=== PATIENT | male | born 1960 | race Caucasian/White ===

== ENCOUNTER 2017-05-26 19:47 | Inpatient (IN) | payer SELFPAY ==
[2017-05-26 21:23] LABS: Amphetamine Detected (NotDetected); Barbiturates Screen Not Detected (NotDetected); Benzodiazepine Screen Detected (NotDetected); Cocaine Metabolite Screen Detected (NotDetected); Medtox Control Line Valid? VALID (VALID); Medtox Reader # READER 4; Methadone Not Detected (NotDetected); Methamphetamine Detected (NotDetected); Opiate Screen Not Detected (NotDetected); Oxycodone Screen Not Detected (NotDetected); Phencyclidine (PCP) Not Detected (NotDetected); THC/Cannabinoid Screen Not Detected (NotDetected); Tricyclic Screen Not Detected (NotDetected)
[2017-05-26] MEDS ORDERED: Clindamycin/D5W 600 mg/50 ml Premix Bag ONE (21:23)
[2017-05-26 21:30] LABS: Acetaminophen Less than 6.0 mcg/mL (10.0-30.0); Alcohol Less than 10 mg/dL (Less than 10); Salicylate Less than 8.0 mg/dL (15.0-30.0)
[2017-05-26 21:31] LABS: ALT (SGPT) 40 U/L (8-55); AST (SGOT) 102 U/L (5-34); Albumin 4.2 g/dL (3.5-5.0); Alkaline Phosphatase 104 U/L (40-150); Anion Gap 21 mmol/L (10-20); BUN (Urea Nitrogen) 18 mg/dL (8.4-25.7); Bilirubin, Total 1.1 mg/dL (0.2-1.2); Calc. Creatinine Clearance 0 mL/min (70-130); Carbon Dioxide 22 mmol/L (22-29); Chloride 97 mmol/L (98-107); Estimated GFR-MDRD 44; Globulin 4.5 g/dL (2.4-3.5); Glucose 82 mg/dL (70-105); Potassium 3.7 mmol/L (3.5-5.1); Protein, Total 8.7 g/dL (6.0-8.3); Sodium 136 mmol/L (136-145)
[2017-05-26 21:36] LABS: Band 4 % (5-11); Hemoglobin 14.1 g/dL (14.0-18.0); Lymphocytes 10 % (21-51); MDiff Complete? YES; Macrocytosis SLIGHT = 6-15 cells (100X) (0-5/hpf); Mean Corpuscular HGB CONC 34.4 g/dL (32.0-36.0); Mean Corpuscular Hemoglobin 33.6 pg (27.0-31.0); Mean Corpuscular Volume 97.7 fl (80.0-94.0); Mean Platelet Volume 7.5 fL (7.4-10.4); Metamyelocyte 1 % (0-0); Monocytes 5 % (0-10); Myelocyte 1 % (0-0); Neutrophil 77 % (42-75); PLT Morphology Comment Appears Increased; Platelet Count 464 thou/uL (130-400); RBC Distribution Width 13.6 % (11.5-14.5); Reactive Lymphocytes 2 % (0-10); White Blood Cell (WBC) Count 20.8 thou/uL (4.8-10.8)
[2017-05-26 21:44] LABS: CK (CPK) 5351 U/L (30-200)
--- NOTE | 2017-05-26 21:45 | RAD ---
LEFT FINGER THREE VIEWS 05/26/17 HISTORY: Trauma. Left finger pain. FINDINGS/IMPRESSION: There is comminution of the base and shaft of the middle phalanx of the left index finger with displa cement of fracture fragments. POS: [facility]
[2017-05-27] MEDS ORDERED: Ondansetron ODT 4 MG TAB SL PRN (00:06)
[2017-05-27] MEDS ORDERED: Acetaminophen 325 MG TAB PO PRN (00:06)
[2017-05-27] MEDS ORDERED: Ondansetron HCl/PF 4 MG/2 ML Vial IVP PRN ×2 (00:06→20:18)
[2017-05-27 00:31] VITALS: BMI 28.2
[2017-05-27] MEDS: traMADol HCl 50 MG TAB PO PRN (01:40)
[2017-05-27] MEDS: Dextrose 5 % And 0.9 % NaCl 1,000 ML IV SCH ×2 (01:41→08:15)
[2017-05-27] MEDS: Clindamycin/D5W 600 MG in Premix Bag 1 BAG IVPB SCH ×2 (01:44→08:21)
[2017-05-27 03:01] LABS: Lactic Acid 1.3 mmol/L (0.5-2.2)
[2017-05-27] MEDS ORDERED: FLU VACC QS2017-18 36 mo. & older 0.5 ML SYRINGE IM ONE (09:00)
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
[2017-05-27] MEDS ORDERED: Propofol 200 MG/20 ML VIAL ONE (14:03)
[2017-05-27] MEDS ORDERED: Lidocaine 1% PF 5 ML VIAL ONE (14:03)
[2017-05-27] MEDS ORDERED: Ondansetron HCl/PF 4 MG/2 ML Vial ONE (14:03)
[2017-05-27] MEDS ORDERED: diphenhydrAMINE 50 MG/ML VIAL ONE (14:03)
[2017-05-27] MEDS ORDERED: PHENYLEPHRINE-NS 100 MCG/ML 10 ML SYRINGE ONE (14:03)
[2017-05-27] MEDS: Lorazepam 2 MG/ML VIAL SLOW IVP PRN (14:22)
[2017-05-27] MEDS ORDERED: Sodium Chloride 0.9% 30 ML ONE (18:17)
[2017-05-27] MEDS ORDERED: Bupivacaine PF 0.5% 30 ML VIAL ONE (18:18)
[2017-05-27] MEDS ORDERED: Bacitracin Zinc Ointment 30 gm TUBE ONE (18:18)
[2017-05-27] MEDS ORDERED: Tobramycin Sulfate 1.2 GM VIAL ONE (18:18)
[2017-05-27] MEDS ORDERED: Fentanyl 100 MCG/2 ML VIAL ONE (18:52)
[2017-05-27] MEDS ORDERED: Promethazine HCl 25 MG/ML VIAL IM PRN (20:18)
[2017-05-27] MEDS ORDERED: Promethazine HCl 25 MG/ML VIAL SLOW IVP PRN (20:18)
[2017-05-27] MEDS ORDERED: Morphine 5 mg/5 ml in 0.9% NaCl/PF SYRINGE IV PRN (21:26)
[2017-05-27] MEDS: Vancomycin HCl 1.25 GM in Sodium Chloride 0.9% 250 ML 250 ML IVPB SCH (22:58)
[2017-05-28 04:08] LABS: #Eosinphils 0.2 thou/uL (0.0-0.7); #Lymphocytes 3.6 thou/uL (1.20-3.40); #Monocytes 1.6 thou/uL (0.11-0.59); #Neutrophils 7.2 thou/uL (1.40-6.50); %Basophils 0.2 % (0.0-1.0); %Eosinophils 1.4 % (0.0-10.0); %Lymphocytes 28.5 % (21.0-51.0); %Monocytes 12.4 % (0.0-10.0); %Neutrophils 57.5 % (42.0-75.0); Hemoglobin 11.7 g/dL (14.0-18.0); Mean Corpuscular Hemoglobin 33.8 pg (27.0-31.0); Mean Corpuscular Volume 99.5 fl (80.0-94.0); Platelet Count 364 thou/uL (130-400); RBC Distribution Width 13.6 % (11.5-14.5); Red Blood Cell (RBC) Count 3.47 mill/uL (4.70-6.10); White Blood Cell (WBC) Count 12.6 thou/uL (4.8-10.8)
[2017-05-28 05:35] LABS: Anion Gap 12 mmol/L (10-20); BUN (Urea Nitrogen) 9 mg/dL (8.4-25.7); CK (CPK) 2511 U/L (30-200); Calc. Creatinine Clearance 147 mL/min (70-130); Calcium 8.5 mg/dL (7.8-10.44); Carbon Dioxide 25 mmol/L (22-29); Chloride 110 mmol/L (98-107); Estimated GFR-MDRD Greater than 90; Glucose 90 mg/dL (70-105); Potassium 3.3 mmol/L (3.5-5.1); Sodium 144 mmol/L (136-145)
--- NOTE | 2017-05-28 09:29 | PDOC.PN ---
- Subjective Encounter Start Date: 05/28/17 Encounter Start Time: 09:10 Subjective: Expresses no specific complaint. - Objective MAR Reviewed: Yes Vital Signs & Weight: Vital Signs (12 hours) Temp Pulse Resp BP Pulse Ox 05/28/17 07:31 98.7 F 83 16 151/89 H 93 L 05/28/17 04:00 98.9 F 85 20 107/78 92 L 05/28/17 00:00 98.7 F 88 20 123/78 97 Weight Weight 219 lb 12.814 oz Result Diagrams: 05/28/17 03:35 05/28/17 03:35 Radiology Reviewed by me: Yes Phys Exam - Physical Examination Constitutional: NAD HEENT: sclera anicteric Neck: no JVD Respiratory: no rales Cardiovascular: RRR Gastrointestinal: soft Musculoskeletal: no edema (infected left index) Neurological: moves all 4 limbs Psychiatric: A&O x 3 Dx/Plan (1) Cirrhosis Code(s): K74.60 - UNSPECIFIED CIRRHOSIS OF LIVER Status: Acute Qualifiers: Ascites presence: without ascites Comment: Secondary to hepatitis c. Compensated. (2) Infected finger Code(s): L08.9 - LOCAL INFECTION OF THE SKIN AND SUBCUTANEOUS TISSUE, UNSP Status: Acute Plan: continue antibiotics. Comment: seen by hand surgery. (3) Altered mental status Code(s): R41.82 - ALTERED MENTAL STATUS, UNSPECIFIED Status: Resolved (4) HTN (hypertension) Code(s): I10 - ESSENTIAL (PRIMARY) HYPERTENSION Status: Chronic Plan: stable. (5) Drug overdose Code(s): T50.901A - POISONING BY UNSP DRUG/MEDS/BIOL SUBST, ACCIDENTAL, INIT Status: Resolved - Plan -: continue current therapy. -: [facility] to see. * .
[2017-05-28] MEDS ORDERED: Potassium Chloride 20 MEQ/100 ML PREMIX BAG IVPB SCH (09:30)
[2017-05-28] MEDS ORDERED: Potassium Chloride 20 MEQ in Sodium Chloride 0.9% 250 ML 250 ML IVPB SCH (10:15)
[2017-05-28] MEDS: Vancomycin HCl 1.25 GM in Sodium Chloride 0.9% 250 ML 250 ML IVPB SCH ×2 (10:23→21:58)
--- NOTE | 2017-05-28 11:40 | OP ---
DATE OF PROCEDURE: 05/27/2017 PREOPERATIVE DIAGNOSES: 1. Left index finger, middle phalanx osteomyelitis of middle phalanx, remnant of the distal phalange al joint, and the base of distal phalanx. 2. Bone abscess and soft tissue abscess, all 3 sites. PROCEDURES PERFORMED: 1. Excision of bone cortex, middle and distal phalanx, left index finger. 2. Wound debridement, left index finger. 3. Application of antibiotic beads, intramedullary and into the wound cavities. Defect created by t he osteomyelitis and subsequent debridements. 4. Tenotomy, extensor tendon. 5. Tenotomy, flexor tendon. FINDINGS: At the end of procedure, the patient had no viable middle phalanx bone left. The extensor tendon and most of the flexor tendon in this region were also involved in the process, desiccated an d/or necrotic from infection. DESCRIPTION OF PROCEDURE: After successful general LMA technique by [employer]. Time-out was done appropriately. Limb was prepped and draped. Mr. Alberto Ventura, cardiology physician assistant, prepared the back table by beginning to make the antibiotic beads which were [place] cement impregnated with vancomycin powder. There was a large abscess, open wound that drained grossly with palpation of yell ow thick green pus. After the limb was exsanguinated, tourniquet was inflated to 250 mmHg pressure. We began to extend the opening, which was an oval-shaped opening, almost 2.5 cm with gross green pus inside. We extended that 4 cm proximal and 15 mm distal to the level of the mid portion of the dist al phalanx and the neck of the proximal phalanx. Here, it was grossly infected bone, soft tissue, ex tensor tendon, flexor tendon. So, incision of the bone cortex, debridement of wound, tenotomies of t he infected tendons, all ensued initially. We then removed the underlying soft tissue that looked ge latinous and grossly infected, and this led to removal of some bone from the distal phalanx as well. Now, the entire middle phalanx had been resected along with surrounding infection of the flexor and extensor tendon compartments. We then irrigated this wound with 3 liters of normal saline and Pulsav ac pressure with antibiotics inside, deflated the tourniquet, and obtained hemostasis. We then place d the premixed small antibiotic beads into the canal as well as the wound itself. PLAN: The patient will have second debridement in 48-72 hours.
[2017-05-28] MEDS: Promethazine HCl 25 MG/ML VIAL IM PRN (12:22)
[2017-05-28] MEDS: HYDROcodone/Acetaminophen 7.5/325 mg Tablet PO PRN (16:58)
[2017-05-28] MEDS: Lorazepam 2 MG/ML VIAL SLOW IVP PRN (21:54)
[2017-05-28] MEDS: traMADol HCl 50 MG TAB PO PRN (21:57)
[2017-05-29 04:28] LABS: Anion Gap 8 mmol/L (10-20); BUN (Urea Nitrogen) 6 mg/dL (8.4-25.7); Calc. Creatinine Clearance 151 mL/min (70-130); Calcium 8.4 mg/dL (7.8-10.44); Carbon Dioxide 30 mmol/L (22-29); Chloride 106 mmol/L (98-107); Estimated GFR-MDRD Greater than 90; Glucose 100 mg/dL (70-105); Potassium 3.4 mmol/L (3.5-5.1); Sodium 141 mmol/L (136-145)
--- NOTE | 2017-05-29 07:46 | PDOC.PN ---
- Subjective Encounter Start Date: 05/29/17 Encounter Start Time: 07:35 No complaint.. - Objective Vital Signs & Weight: Vital Signs (12 hours) Temp Pulse Resp BP Pulse Ox 05/29/17 04:00 99.1 F 73 18 97 05/28/17 20:00 98.8 F 84 16 151/81 H 94 L Weight Weight 219 lb 12.814 oz Result Diagrams: 05/28/17 03:35 05/29/17 03:23 Phys Exam - Physical Examination Constitutional: NAD HEENT: sclera anicteric Neck: no JVD Respiratory: clear to auscultation bilateral Cardiovascular: RRR Gastrointestinal: soft Musculoskeletal: no edema (Left index infection..) Neurological: moves all 4 limbs Psychiatric: A&O x 3 Dx/Plan (1) Cirrhosis Code(s): K74.60 - UNSPECIFIED CIRRHOSIS OF LIVER Status: Acute Qualifiers: Ascites presence: without ascites Comment: Secondary to hepatitis c. Compensated. (2) Infected finger Code(s): L08.9 - LOCAL INFECTION OF THE SKIN AND SUBCUTANEOUS TISSUE, UNSP Status: Acute Comment: seen by hand surgery. Wound culture is growing Staph aureus..; on Vancomycin. (3) Altered mental status Code(s): R41.82 - ALTERED MENTAL STATUS, UNSPECIFIED Status: Resolved (4) HTN (hypertension) Code(s): I10 - ESSENTIAL (PRIMARY) HYPERTENSION Status: Chronic Comment: stable (5) Drug overdose Code(s): T50.901A - POISONING BY UNSP DRUG/MEDS/BIOL SUBST, ACCIDENTAL, INIT Status: Resolved - Plan -: Continue current therapy. -: P: as per hand surgery. -: f/u with MR -: Hypokalemia, supplemented. * .
[2017-05-29] MEDS ORDERED: Potassium Chloride 20 MEQ TAB PO SCH (08:00)
[2017-05-29 09:13] LABS: Vancomycin, Trough 9.7 ug/mL
[2017-05-29] MEDS: Vancomycin HCl 1.25 GM in Sodium Chloride 0.9% 250 ML 250 ML IVPB SCH (10:08)
[2017-05-29] MEDS: Vancomycin HCl 1.5 GM in Sodium Chloride 0.9% 250 ML 300 ML IVPB SCH ×3 (10:09→23:07)
[2017-05-29] MEDS: HYDROcodone/Acetaminophen 7.5/325 mg Tablet PO PRN (13:48)
[2017-05-29] MEDS: traMADol HCl 50 MG TAB PO PRN (15:27)
[2017-05-29] MEDS: Promethazine HCl 25 MG/ML VIAL IM PRN (21:17)
[2017-05-30 04:17] LABS: #Basophils 0.1 thou/uL (0.0-0.2); #Eosinphils 0.3 thou/uL (0.0-0.7); #Lymphocytes 4.5 thou/uL (1.20-3.40); #Monocytes 1.1 thou/uL (0.11-0.59); #Neutrophils 3.8 thou/uL (1.40-6.50); %Basophils 0.9 % (0.0-1.0); %Lymphocytes 45.8 % (21.0-51.0); %Monocytes 11.7 % (0.0-10.0); %Neutrophils 38.6 % (42.0-75.0); Hemoglobin 11.4 g/dL (14.0-18.0); Mean Corpuscular HGB CONC 33.3 g/dL (32.0-36.0); Mean Corpuscular Hemoglobin 33.5 pg (27.0-31.0); Mean Platelet Volume 7.9 fL (7.4-10.4); Platelet Count 360 thou/uL (130-400); RBC Distribution Width 13.6 % (11.5-14.5); Red Blood Cell (RBC) Count 3.39 mill/uL (4.70-6.10); White Blood Cell (WBC) Count 9.8 thou/uL (4.8-10.8)
[2017-05-30] MEDS: HYDROcodone/Acetaminophen 7.5/325 mg Tablet PO PRN ×2 (07:19→20:47)
[2017-05-30] MEDS ORDERED: Heparin 10,000 UNITS/ 10 ML VIAL ONE (07:44)
[2017-05-30] MEDS ORDERED: Potassium Chloride 20 MEQ TAB PO SCH (08:00)
--- NOTE | 2017-05-30 08:26 | RAD ---
THREE VIEWS OF THORACIC SPINE: COMPARISON: None. HISTORY: T-spine with possible injury. FINDINGS: Three views of the thoracic spine show normal height and alignment of the vertebral bodies and interv ertebral disks without fracture or subluxation. There are moderate osteophytes throughout the thorac ic spine. The visualized posterior ribs are unremarkable. IMPRESSION: Moderate degenerative change of the thoracic spine without acute osseous abnormality. POS: [facility]
--- NOTE | 2017-05-30 08:29 | RAD ---
3 VIEWS LUMBOSACRAL SPINE: Date: 05/30/17 HISTORY: Low back pain with possible spinal injury. FINDINGS: Three views of the lumbosacral spine show normal height and alignment of the vertebral bodies and int erval discs without fracture or subluxation. There is Grade I anterolisthesis of L5 on S1, likely sec ondary to degenerative change. Moderate posterior facet arthrosis is seen in the lower lumbosacral sp ine. Moderate osteophytes are seen throughout the lumbar spine. An inferior vena cava filter is visua lized. IMPRESSION: Moderate degenerative changes of the lumbar spine without acute osseous abnormality. POS: [facility]
--- NOTE | 2017-05-30 08:29 | RAD ---
CERVICAL SPINE RADIOGRAPH SERIES 3 VIEWS: CLINICAL HISTORY: Spine injury. FINDINGS: The lateral aspect of C1 appropriately aligned. Imaged portions of the dens are intact. There is mo derate to severe multilevel degenerative change of the cervical spine with bridging osteophytosis. M ultilevel disk space narrowing and end plate irregularity present. No significant subluxation. Ther e are scattered radiopaque densities of the regional soft tissues, not fully characterized. IMPRESSION: Moderate to severe multilevel cervical spine degenerative change without acute fracture identified. POS: [facility]
[2017-05-30 08:30] LABS: Magnesium 1.9 mg/dL (1.6-2.6); Phosphorus 3.3 mg/dL (2.3-4.7)
[2017-05-30] MEDS: Cyanocobalamin (Vitamin B-12) 1,000 MCG TAB PO SCH (10:01)
[2017-05-30] MEDS: Vancomycin HCl 1.5 GM in Sodium Chloride 0.9% 250 ML 300 ML IVPB SCH (10:01)
[2017-05-30] MEDS: Multivitamin W/ Minerals 1 TAB PO SCH (10:01)
[2017-05-30] MEDS: Folic Acid 1 MG TAB PO SCH (10:01)
[2017-05-30] MEDS: Lorazepam 2 MG/ML VIAL SLOW IVP PRN (10:21)
--- NOTE | 2017-05-30 11:03 | PDOC.PN ---
- Subjective Encounter Start Date: 05/30/17 Encounter Start Time: 08:50 -: old records requested/rev Patient seen and examined. No new complaints. No overnight events - Objective MAR Reviewed: Yes Vital Signs & Weight: Vital Signs (12 hours) Temp Pulse Resp BP Pulse Ox 05/30/17 07:16 97.5 F L 68 16 149/77 H 95 05/30/17 04:00 98.7 F 62 15 152/85 H 95 05/30/17 00:39 99.0 F 76 18 155/74 H 96 Weight Weight 219 lb 12.814 oz I&O: 05/29/17 05/30/17 05/31/17 06:59 06:59 06:59 Intake Total 1490 Balance 1490 Result Diagrams: 05/30/17 03:48 05/29/17 03:23 Radiology Reviewed by me: Yes Phys Exam - Physical Examination Constitutional: NAD HEENT: PERRLA, moist MMs, sclera anicteric Neck: no JVD, supple Respiratory: no wheezing, no rales, no rhonchi Cardiovascular: RRR, no significant murmur, no rub Gastrointestinal: soft, non-tender, no distention, positive bowel sounds Musculoskeletal: no edema, pulses present left hand with dressing Neurological: non-focal, normal sensation Psychiatric: normal affect, A&O x 3 Skin: no rash, normal turgor Dx/Plan (1) Hypokalemia Code(s): E87.6 - HYPOKALEMIA Status: Acute (2) Osteomyelitis of finger of left hand Code(s): M86.9 - OSTEOMYELITIS, UNSPECIFIED Status: Acute (3) Rhabdomyolysis Code(s): M62.82 - RHABDOMYOLYSIS Status: Acute (4) Sepsis Code(s): A41.9 - SEPSIS, UNSPECIFIED ORGANISM Status: Acute (5) Toxic metabolic encephalopathy Code(s): G92 - TOXIC ENCEPHALOPATHY Status: Acute (6) Degenerative joint disease of spine Code(s): M47.9 - SPONDYLOSIS, UNSPECIFIED Status: Chronic (7) HTN (hypertension) Code(s): I10 - ESSENTIAL (PRIMARY) HYPERTENSION Status: Chronic Comment: stable (8) Macrocytic anemia Code(s): D53.9 - NUTRITIONAL ANEMIA, UNSPECIFIED Status: Chronic (9) Drug overdose Code(s): T50.901A - POISONING BY UNSP DRUG/MEDS/BIOL SUBST, ACCIDENTAL, INIT Status: Resolved - Plan cont current plan of care, continue antibiotics, social work program coordinator * consult ID * neurology consulted by hand surgeon * pain control * continue IV antibiotics * wound care * medication reviewed as below * symptomatic treatment. * will replace potassium * counselled to avoid polysubstance Review of Systems - Review of Systems Constitutional: negative: fever, chills, sweats, weakness, malaise, other ENT: negative: Ear Pain, Ear Discharge, Nose Pain, Nose Discharge, Nose Congestion, Mouth Pain, Mouth Swelling, Throat Pain, Throat Swelling, Other Respiratory: negative: Cough, Dry, Shortness of Breath, Hemoptysis, SOB with Excertion, Pleuritic Pain, Sputum, Wheezing Cardiovascular: negative: chest pain, palpitations, orthopnea, paroxysmal nocturnal dyspnea, edema, light headedness, other Gastrointestinal: negative: Nausea, Vomiting, Abdominal Pain, Diarrhea, Constipation, Melena, Hematochezia, Other Genitourinary: negative: Dysuria, Frequency, Incontinence, Hematuria, Retention , Other Musculoskeletal: Neck Pain, Back Pain, Hand Pain. negative: Shoulder Pain, Arm Pain, Leg Pain, Foot Pain, Other Skin: negative: Rash, Lesions, Osman, Bruising, Other - Medications/Allergies Allergies/Adverse Reactions: Allergies Allergy/AdvReac Type Severity Reaction Status Date / Time oxycodone [Oxycodone] Allergy Severe CONFUSION Verified 10/13/12 20:14 Medications: Current Medications Hydrocodone Bitart/Acetaminophen ([place] 7.5/325) 2 tab PO Q12H PRN PRN Reason: Mild Pain (1-3) Last Admin: 05/30/17 07:19 Dose: 2 tab Cyanocobalamin (Vitamin B-12) 1,000 mcg PO DAILY [facility] Last Admin: 05/30/17 10:01 Dose: 1,000 mcg Folic Acid (Folvite) 1 mg PO DAILY [facility] Last Admin: 05/30/17 10:01 Dose: 1 mg CEFTRIAXONE 2GM/50 ML BAG 2 gm (/ Device) 50 mls @ 100 mls/hr IVPB Q24HR [facility] Iron/Minerals/Multivitamins (Theragran M) 1 tab PO DAILY [facility] Last Admin: 05/30/17 10:01 Dose: 1 tab Lorazepam (Ativan) 0.5 mg SLOW IVP Q6H PRN PRN Reason: Anxiety Last Admin: 05/30/17 10:21 Dose: 0.5 mg Meperidine HCl (Demerol) 50 mg IM Q4H PRN PRN Reason: Severe Pain (7-10) Last Admin: 05/29/17 21:16 Dose: 50 mg Miscellaneous Medication (Pharmacy To Dose) 0 each IVPB PRN PRN PRN Reason: [facility] to Dose Morphine Sulfate/Sodium Chloride (Morphine 0.9% Nacl/Pf 5 Mg/5 M) 5 mg IV Q6H PRN PRN Reason: Moderate Pain (4-6) Promethazine HCl (Phenergan) 25 mg IM Q4H PRN PRN Reason: Nausea Last Admin: 05/29/17 21:17 Dose: 25 mg Sodium Chloride (Flush - Normal Saline) 10 ml IVF Q12HR [facility] Last Admin: 05/30/17 10:01 Dose: 10 ml Sodium Chloride (Flush - Normal Saline) 10 ml IVF PRN PRN PRN Reason: Saline Flush Thiamine HCl (Thiamine) 100 mg PO DAILY [facility] Last Admin: 05/30/17 10:01 Dose: 100 mg Tramadol HCl (Ultram) 50 mg PO Q6H PRN PRN Reason: Pain Last Admin: 05/29/17 15:27 Dose: 50 mg
[2017-05-30] MEDS: CEFTRIAXONE 2GM/50 ML BAG 2 GM in Premix Bag 1 BAG IVPB SCH (13:04)
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
--- NOTE | 2017-05-30 15:46 | SPC ---
SONOGRAPHIC GUIDED LEFT UPPER EXTREMITY PICC PLACEMENT. HISTORY: Finger infection. Osteomyelitis. FINDINGS: After explaining the procedure and answering all questions, the left upper extremity was prepped and draped in the usual sterile fashion. Sterile technique, buffered local anesthesia, sonographic modesto nce, and a 22-gauge needle were used to carefully access the left basilic vein. Standard technique w as then used to place the tip of a 5 German single-lumen PICC so that the tip lies at the level of th e superior vena cava. The catheter was flushed and secured externally. The patient tolerated the pr ocedure well and was returned in unchanged condition. IMPRESSION: Technically successful left upper extremity PICC placement. The catheter is now ready for use. POS: [facility]
[2017-05-30] MEDS: Promethazine HCl 25 MG/ML VIAL IM PRN (16:24)
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
--- NOTE | 2017-05-31 10:20 | PDOC.PN ---
- Subjective Encounter Start Date: 05/31/17 Encounter Start Time: 08:30 Patient seen and examined. No new complaints. No overnight events - Objective MAR Reviewed: Yes Vital Signs & Weight: Vital Signs (12 hours) Temp Pulse Resp BP Pulse Ox 05/31/17 08:30 98.6 F 72 16 170/84 H 98 05/31/17 07:15 98.6 F 72 16 05/31/17 04:00 98.0 F 65 18 150/88 H 96 05/31/17 00:10 98.6 F 75 18 158/66 H 99 Weight Weight 219 lb 12.814 oz I&O: 05/30/17 05/31/17 06/01/17 06:59 06:59 06:59 Intake Total 1490 1140 Balance 1490 1140 Result Diagrams: 05/30/17 03:48 05/29/17 03:23 Phys Exam - Physical Examination Constitutional: NAD HEENT: PERRLA, moist MMs, sclera anicteric Neck: no JVD, supple Respiratory: no wheezing, no rales, no rhonchi Cardiovascular: RRR, no significant murmur, no rub Gastrointestinal: soft, non-tender, no distention, positive bowel sounds Musculoskeletal: no edema, pulses present left hand with dressing, PICC line in place Neurological: non-focal, normal sensation, moves all 4 limbs Lymphatic: no nodes Psychiatric: normal affect, A&O x 3 Skin: no rash, normal turgor Dx/Plan (1) Hypokalemia Code(s): E87.6 - HYPOKALEMIA Status: Acute (2) Osteomyelitis of finger of left hand Code(s): M86.9 - OSTEOMYELITIS, UNSPECIFIED Status: Acute (3) Rhabdomyolysis Code(s): M62.82 - RHABDOMYOLYSIS Status: Acute (4) Sepsis Code(s): A41.9 - SEPSIS, UNSPECIFIED ORGANISM Status: Acute (5) Toxic metabolic encephalopathy Code(s): G92 - TOXIC ENCEPHALOPATHY Status: Resolved (6) Degenerative joint disease of spine Code(s): M47.9 - SPONDYLOSIS, UNSPECIFIED Status: Chronic (7) HTN (hypertension) Code(s): I10 - ESSENTIAL (PRIMARY) HYPERTENSION Status: Chronic Comment: stable (8) Macrocytic anemia Code(s): D53.9 - NUTRITIONAL ANEMIA, UNSPECIFIED Status: Chronic (9) Drug overdose Code(s): T50.901A - POISONING BY UNSP DRUG/MEDS/BIOL SUBST, ACCIDENTAL, INIT Status: Resolved - Plan cont current plan of care, continue antibiotics, social welfare clerk * continue IV rocephin * wound care * today plan for surgery * social work to arrange outpt IV antibiotics * medication reviewed as below * symptomatic treatment * pain controlled. Review of Systems - Review of Systems ENT: negative: Ear Pain, Ear Discharge, Nose Pain, Nose Discharge, Nose Congestion, Mouth Pain, Mouth Swelling, Throat Pain, Throat Swelling, Other Respiratory: negative: Cough, Dry, Shortness of Breath, Hemoptysis, SOB with Excertion, Pleuritic Pain, Sputum, Wheezing Cardiovascular: negative: chest pain, palpitations, orthopnea, paroxysmal nocturnal dyspnea, edema, light headedness, other Gastrointestinal: negative: Nausea, Vomiting, Abdominal Pain, Diarrhea, Constipation, Melena, Hematochezia, Other Genitourinary: negative: Dysuria, Frequency, Incontinence, Hematuria, Retention , Other Musculoskeletal: negative: Neck Pain, Shoulder Pain, Arm Pain, Back Pain, Hand Pain, Leg Pain, Foot Pain, Other Skin: negative: Rash, Lesions, Osman, Bruising, Other - Medications/Allergies Allergies/Adverse Reactions: Allergies Allergy/AdvReac Type Severity Reaction Status Date / Time oxycodone [Oxycodone] Allergy Severe CONFUSION Verified 10/13/12 20:14 Medications: Current Medications Hydrocodone Bitart/Acetaminophen ([place] 7.5/325) 2 tab PO Q12H PRN PRN Reason: Mild Pain (1-3) Last Admin: 05/30/17 20:47 Dose: 2 tab Cyanocobalamin (Vitamin B-12) 1,000 mcg PO DAILY [facility] Last Admin: 05/30/17 10:01 Dose: 1,000 mcg Folic Acid (Folvite) 1 mg PO DAILY [facility] Last Admin: 05/30/17 10:01 Dose: 1 mg CEFTRIAXONE 2GM/50 ML BAG 2 gm (/ Device) 50 mls @ 100 mls/hr IVPB Q24HR [facility] Last Admin: 05/30/17 13:04 Dose: 50 mls Iron/Minerals/Multivitamins (Theragran M) 1 tab PO DAILY [facility] Last Admin: 05/30/17 10:01 Dose: 1 tab Lorazepam (Ativan) 0.5 mg SLOW IVP Q6H PRN PRN Reason: Anxiety Last Admin: 05/30/17 10:21 Dose: 0.5 mg Meperidine HCl (Demerol) 50 mg IM Q4H PRN PRN Reason: Severe Pain (7-10) Last Admin: 05/30/17 16:19 Dose: 50 mg Morphine Sulfate/Sodium Chloride (Morphine 0.9% Nacl/Pf 5 Mg/5 M) 5 mg IV Q6H PRN PRN Reason: Moderate Pain (4-6) Promethazine HCl (Phenergan) 25 mg IM Q4H PRN PRN Reason: Nausea Last Admin: 05/30/17 16:24 Dose: 25 mg Sodium Chloride (Flush - Normal Saline) 10 ml IVF Q12HR [facility] Last Admin: 05/30/17 20:49 Dose: 10 ml Sodium Chloride (Flush - Normal Saline) 10 ml IVF PRN PRN PRN Reason: Saline Flush Thiamine HCl (Thiamine) 100 mg PO DAILY [facility] Last Admin: 05/30/17 10:01 Dose: 100 mg Tramadol HCl (Ultram) 50 mg PO Q6H PRN PRN Reason: Pain Last Admin: 05/29/17 15:27 Dose: 50 mg
[2017-05-31] MEDS ORDERED: ePHEDrine/0.9% NaCl/PF SYRINGE 50 mg/10 ml ONE (11:28)
[2017-05-31] MEDS ORDERED: Lidocaine 1% PF 5 ML VIAL ONE (11:28)
[2017-05-31] MEDS ORDERED: Dexamethasone 20 MG/5 ML VIAL ONE (11:28)
[2017-05-31] MEDS ORDERED: Ondansetron HCl/PF 4 MG/2 ML Vial ONE (11:28)
[2017-05-31] MEDS ORDERED: Propofol 200 MG/20 ML VIAL ONE (11:28)
[2017-05-31] MEDS ORDERED: Ondansetron HCl/PF 4 MG/2 ML Vial IVP PRN (12:57)
[2017-05-31] MEDS ORDERED: Fentanyl 100 MCG/2 ML VIAL ONE ×2 (14:14→16:21)
[2017-05-31] MEDS ORDERED: HYDROmorphone 0.5 MG/0.5 ML SYRINGE ONE (14:15)
[2017-05-31] MEDS ORDERED: Sodium Chloride 0.9% 10 ML ONE ×2 (14:20→15:14)
[2017-05-31] MEDS ORDERED: Bacitracin Zinc Ointment 30 gm TUBE ONE (14:20)
[2017-05-31] MEDS ORDERED: Bupivacaine PF 0.5% 30 ML VIAL ONE (14:20)
[2017-05-31] MEDS: CEFTRIAXONE 2GM/50 ML BAG 2 GM in Premix Bag 1 BAG IVPB SCH (14:42)
[2017-05-31] MEDS ORDERED: Tobramycin Sulfate 1.2 GM VIAL ONE (14:51)
[2017-05-31] MEDS ORDERED: Ketorolac Tromethamine 30 MG/ML VIAL ONE (16:32)
[2017-05-31] MEDS: Folic Acid 1 MG TAB PO SCH (18:04)
[2017-05-31] MEDS: Multivitamin W/ Minerals 1 TAB PO SCH (18:04)
[2017-05-31] MEDS: Cyanocobalamin (Vitamin B-12) 1,000 MCG TAB PO SCH (18:04)
[2017-05-31] MEDS: HYDROcodone/Acetaminophen 7.5/325 mg Tablet PO PRN (18:05)
[2017-05-31] MEDS: Morphine 4 MG/ML Carpuject SLOW IVP PRN (20:17)
--- NOTE | 2017-06-01 00:27 | OP ---
PREOPERATIVE DIAGNOSIS: Left index finger open wound with bone loss ( ). FINDINGS: 1. No gross infection. 2. Prosthetic 50% total bone loss at the middle phalanx, partial loss of joint surfaces secondary to infection, but no gross infection seen today and no erythema. PROCEDURE PERFORMED: 1. Debridement of wound, intermediate depth 50796. 2. Debridement of bone 02626. 3. Application of antibiotic beads dissolvable with tobramycin powder. 4. Closure of wound, 5 cm complex. DEBRIDEMENT TECHNIQUES FOLLOWS: 1. Use of [place] blade, curet, tenotomy scissors, and Adson's. 2. Excisional technique except for the bone that was excised only curetted. 3. Depth was down to including the bone and rim of the joint. 4. No gross infection. COMPLICATIONS: None. TOURNIQUET TIME: None. ESTIMATED BLOOD LOSS: 5 mL antibiotic beads again were dissolvable. INDICATIONS: The patient has had debridement, antibiotic bead placement, removal of antibiotic beads , dressing change daily, IV antibiotics for 5 days. We were concerned that he may have not enough jalen ne to maintain functional length, but at this point, the patient requested his finger could be salvag e even if not fully functional. He would prefer this as opposed to the possible nerve complications related to amputation. DESCRIPTION OF PROCEDURE: After appropriate prep and drape, we obtained a timeout, the wound was jah luated, we did a debridement using the techniques listed above for bone and joint irrigating with 3 l iters of normal saline, bulb syringe pressure while we waited for antibiotic beads to cure impregnate d with the tobramycin powder. Once this was done, we then turned our attention to the antibiotic faiza ds and placed them in the area of the bone defect deep in the wound and even with the dissolvable faiza ds, we could close the wound with 4-0 nylon. We then closed the wound with 4-0 nylon using a modifie d mattress techniques. Once this was done, had excellent circulation. The finger was not floppy. Karl gonzalez does have no skin turgor on the dorsum and he has the remnant of the flexor still left on the jones r aspect. For this reason, because he had no gross infection, and we could close the wound over anti biotic beads, we elected to let the finger remains to have a chance to heal and be used as a pinch po st with good sensation from chicken ranch tip arrangement. He left the operating room in a bulky dressing w ith no evidence of anesthetic or operative complication.
[2017-06-01] MEDS: Morphine 4 MG/ML Carpuject SLOW IVP PRN ×3 (07:24→22:53)
[2017-06-01] MEDS: Cyanocobalamin (Vitamin B-12) 1,000 MCG TAB PO SCH (08:07)
[2017-06-01] MEDS: Folic Acid 1 MG TAB PO SCH (08:07)
[2017-06-01] MEDS: Multivitamin W/ Minerals 1 TAB PO SCH (08:07)
[2017-06-01] MEDS: HYDROcodone/Acetaminophen 7.5/325 mg Tablet PO PRN (10:27)
[2017-06-01] MEDS: CEFTRIAXONE 2GM/50 ML BAG 2 GM in Premix Bag 1 BAG IVPB SCH (10:27)
--- NOTE | 2017-06-01 10:44 | PDOC.PN ---
- Subjective Encounter Start Date: 06/01/17 Encounter Start Time: 08:40 Patient seen and examined. No new complaints. No overnight events pt is resting this morning - Objective MAR Reviewed: Yes Vital Signs & Weight: Vital Signs (12 hours) Temp Pulse Resp BP Pulse Ox 06/01/17 08:00 98.4 F 76 16 06/01/17 07:14 98.4 F 76 16 133/70 96 06/01/17 04:00 98.7 F 75 18 141/77 H 96 05/31/17 23:52 98.6 F 73 16 135/78 94 L Weight Weight 219 lb 12.814 oz I&O: 05/31/17 06/01/17 06/02/17 06:59 06:59 06:59 Intake Total 1140 480 Balance 1140 480 Result Diagrams: 05/30/17 03:48 05/29/17 03:23 Phys Exam - Physical Examination Constitutional: NAD HEENT: PERRLA, moist MMs, sclera anicteric Neck: no JVD, supple Respiratory: no wheezing, no rales, no rhonchi Cardiovascular: RRR, no significant murmur, no rub Gastrointestinal: soft, non-tender, no distention, positive bowel sounds Musculoskeletal: no edema, pulses present left hand with dressing, PICC line Neurological: non-focal, normal sensation, moves all 4 limbs Lymphatic: no nodes Psychiatric: normal affect, A&O x 3 Skin: no rash, normal turgor Dx/Plan (1) Hypokalemia Code(s): E87.6 - HYPOKALEMIA Status: Acute (2) Osteomyelitis of finger of left hand Code(s): M86.9 - OSTEOMYELITIS, UNSPECIFIED Status: Acute (3) Rhabdomyolysis Code(s): M62.82 - RHABDOMYOLYSIS Status: Acute (4) Sepsis Code(s): A41.9 - SEPSIS, UNSPECIFIED ORGANISM Status: Acute (5) Toxic metabolic encephalopathy Code(s): G92 - TOXIC ENCEPHALOPATHY Status: Resolved (6) Degenerative joint disease of spine Code(s): M47.9 - SPONDYLOSIS, UNSPECIFIED Status: Chronic (7) HTN (hypertension) Code(s): I10 - ESSENTIAL (PRIMARY) HYPERTENSION Status: Chronic Comment: stable (8) Macrocytic anemia Code(s): D53.9 - NUTRITIONAL ANEMIA, UNSPECIFIED Status: Chronic (9) Drug overdose Code(s): T50.901A - POISONING BY UNSP DRUG/MEDS/BIOL SUBST, ACCIDENTAL, INIT Status: Resolved - Plan cont current plan of care, continue antibiotics, aids social worker * pt will need IV rocephin 2 gm daily till febary 6, then oral keflex 500 mg po tid and cleocin 450 mg po tid for 3 week * case work aide has to arrange iv antibiotics * once dr Troy clears, he would be stable for discharge * medication reviewed as below * symptomatic treatment * pain controlled * wound care. Review of Systems - Review of Systems Constitutional: negative: fever, chills, sweats, weakness, malaise, other Eyes: negative: Pain, Vision Change, Conjunctivae Inflammation, Eyelid Inflammation, Redness, Other ENT: negative: Ear Pain, Ear Discharge, Nose Pain, Nose Discharge, Nose Congestion, Mouth Pain, Mouth Swelling, Throat Pain, Throat Swelling, Other Respiratory: negative: Cough, Dry, Shortness of Breath, Hemoptysis, SOB with Excertion, Pleuritic Pain, Sputum, Wheezing Cardiovascular: negative: chest pain, palpitations, orthopnea, paroxysmal nocturnal dyspnea, edema, light headedness, other Gastrointestinal: negative: Nausea, Vomiting, Abdominal Pain, Diarrhea, Constipation, Melena, Hematochezia, Other Genitourinary: negative: Dysuria, Frequency, Incontinence, Hematuria, Retention , Other Musculoskeletal: Hand Pain. negative: Neck Pain, Shoulder Pain, Arm Pain, Back Pain, Leg Pain, Foot Pain, Other - Medications/Allergies Allergies/Adverse Reactions: Allergies Allergy/AdvReac Type Severity Reaction Status Date / Time oxycodone [Oxycodone] Allergy Severe CONFUSION Verified 10/13/12 20:14 Medications: Current Medications Hydrocodone Bitart/Acetaminophen ([place] 7.5/325) 2 tab PO Q12H PRN PRN Reason: Mild Pain (1-3) Last Admin: 06/01/17 10:27 Dose: 2 tab Cyanocobalamin (Vitamin B-12) 1,000 mcg PO DAILY [facility] Last Admin: 06/01/17 08:07 Dose: 1,000 mcg Folic Acid (Folvite) 1 mg PO DAILY [facility] Last Admin: 06/01/17 08:07 Dose: 1 mg CEFTRIAXONE 2GM/50 ML BAG 2 gm (/ Device) 50 mls @ 100 mls/hr IVPB Q24HR [facility] Last Admin: 06/01/17 10:27 Dose: 50 mls Iron/Minerals/Multivitamins (Theragran M) 1 tab PO DAILY [facility] Last Admin: 06/01/17 08:07 Dose: 1 tab Lorazepam (Ativan) 0.5 mg SLOW IVP Q6H PRN PRN Reason: Anxiety Last Admin: 05/30/17 10:21 Dose: 0.5 mg Meperidine HCl (Demerol) 50 mg IM Q4H PRN PRN Reason: Severe Pain (7-10) Last Admin: 05/30/17 16:19 Dose: 50 mg Morphine Sulfate (Morphine) 5 mg SLOW IVP Q6H PRN PRN Reason: Moderate Pain (4-6) Last Admin: 06/01/17 07:24 Dose: 5 mg Promethazine HCl (Phenergan) 25 mg IM Q4H PRN PRN Reason: Nausea Last Admin: 05/30/17 16:24 Dose: 25 mg Sodium Chloride (Flush - Normal Saline) 10 ml IVF Q12HR [facility] Last Admin: 06/01/17 10:28 Dose: 10 ml Sodium Chloride (Flush - Normal Saline) 10 ml IVF PRN PRN PRN Reason: Saline Flush Thiamine HCl (Thiamine) 100 mg PO DAILY [facility] Last Admin: 06/01/17 08:07 Dose: 100 mg Tramadol HCl (Ultram) 50 mg PO Q6H PRN PRN Reason: Pain Last Admin: 05/29/17 15:27 Dose: 50 mg
[2017-06-01] MEDS: Promethazine HCl 25 MG/ML VIAL IM PRN ×2 (16:06→20:02)
[2017-06-01] MEDS ORDERED: Lorazepam 2 MG/ML VIAL SLOW IVP PRN (20:41)
[2017-06-01 21:41] LABS: Anion Gap 12 mmol/L (10-20); BUN (Urea Nitrogen) 15 mg/dL (8.4-25.7); Calc. Creatinine Clearance 122 mL/min (70-130); Calcium 10.1 mg/dL (7.8-10.44); Carbon Dioxide 31 mmol/L (22-29); Chloride 105 mmol/L (98-107); Estimated GFR-MDRD 83; Glucose 81 mg/dL (70-105); Potassium 4.3 mmol/L (3.5-5.1); Sodium 144 mmol/L (136-145)
[2017-06-02] MEDS: Morphine 4 MG/ML Carpuject SLOW IVP PRN ×2 (07:47→16:06)
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
[2017-06-02] MEDS: Folic Acid 1 MG TAB PO SCH (07:57)
[2017-06-02] MEDS: Cyanocobalamin (Vitamin B-12) 1,000 MCG TAB PO SCH (07:57)
[2017-06-02] MEDS: Multivitamin W/ Minerals 1 TAB PO SCH (07:58)
--- NOTE | 2017-06-02 11:08 | PDOC.PN ---
- Subjective Encounter Start Date: 06/02/17 Encounter Start Time: 08:00 - Objective MAR Reviewed: Yes Vital Signs & Weight: Vital Signs (12 hours) Temp Pulse Resp BP Pulse Ox 06/02/17 08:00 98.0 F 67 16 174/80 H 98 06/02/17 04:11 97.5 F L 65 17 146/80 H 94 L 06/01/17 23:40 99.3 F 64 16 143/77 H 96 Weight Weight 219 lb 12.814 oz I&O: 06/01/17 06/02/17 06/03/17 06:59 06:59 06:59 Intake Total 480 1290 Balance 480 1290 Result Diagrams: 05/30/17 03:48 06/01/17 21:11 Phys Exam - Physical Examination Constitutional: NAD HEENT: PERRLA, moist MMs, sclera anicteric Neck: no JVD, supple Respiratory: no wheezing, no rales, no rhonchi Cardiovascular: RRR, no significant murmur, no rub Gastrointestinal: soft, non-tender, no distention, positive bowel sounds Musculoskeletal: no edema, pulses present right hand with dressing Neurological: non-focal, normal sensation Psychiatric: normal affect, A&O x 3 Skin: no rash, normal turgor Dx/Plan (1) Hypokalemia Code(s): E87.6 - HYPOKALEMIA Status: Acute (2) Osteomyelitis of finger of left hand Code(s): M86.9 - OSTEOMYELITIS, UNSPECIFIED Status: Acute (3) Rhabdomyolysis Code(s): M62.82 - RHABDOMYOLYSIS Status: Acute (4) Sepsis Code(s): A41.9 - SEPSIS, UNSPECIFIED ORGANISM Status: Acute (5) Toxic metabolic encephalopathy Code(s): G92 - TOXIC ENCEPHALOPATHY Status: Resolved (6) Degenerative joint disease of spine Code(s): M47.9 - SPONDYLOSIS, UNSPECIFIED Status: Chronic (7) HTN (hypertension) Code(s): I10 - ESSENTIAL (PRIMARY) HYPERTENSION Status: Chronic Comment: stable (8) Macrocytic anemia Code(s): D53.9 - NUTRITIONAL ANEMIA, UNSPECIFIED Status: Chronic (9) Drug overdose Code(s): T50.901A - POISONING BY UNSP DRUG/MEDS/BIOL SUBST, ACCIDENTAL, INIT Status: Resolved - Plan cont current plan of care, plan discussed w/ family, continue antibiotics, social services specialist * main issue at this point is his back and neck pain, today plan for MRI * neurosurgeon saw and no surgery indicated * social work for arranging outpt IV antibiotics * wound care * continue rocephin * medication reviewed as below * symptomatic treatment * discussed with family. Review of Systems - Review of Systems Constitutional: negative: fever, chills, sweats, weakness, malaise, other Eyes: negative: Pain, Vision Change, Conjunctivae Inflammation, Eyelid Inflammation, Redness, Other ENT: negative: Ear Pain, Ear Discharge, Nose Pain, Nose Discharge, Nose Congestion, Mouth Pain, Mouth Swelling, Throat Pain, Throat Swelling, Other Respiratory: negative: Cough, Dry, Shortness of Breath, Hemoptysis, SOB with Excertion, Pleuritic Pain, Sputum, Wheezing Cardiovascular: negative: chest pain, palpitations, orthopnea, paroxysmal nocturnal dyspnea, edema, light headedness, other Gastrointestinal: negative: Nausea, Vomiting, Abdominal Pain, Diarrhea, Constipation, Melena, Hematochezia, Other Genitourinary: negative: Dysuria, Frequency, Incontinence, Hematuria, Retention , Other Musculoskeletal: Neck Pain, Back Pain, Hand Pain Skin: negative: Rash, Lesions, Osman, Bruising, Other Neurological: negative: Weakness, Numbness, Incoordination, Change in Speech, Confusion, Seizures, Other - Medications/Allergies Allergies/Adverse Reactions: Allergies Allergy/AdvReac Type Severity Reaction Status Date / Time oxycodone [Oxycodone] Allergy Severe CONFUSION Verified 10/13/12 20:14 Medications: Current Medications Hydrocodone Bitart/Acetaminophen ([place] 7.5/325) 2 tab PO Q12H PRN PRN Reason: Mild Pain (1-3) Last Admin: 06/01/17 10:27 Dose: 2 tab Cyanocobalamin (Vitamin B-12) 1,000 mcg PO DAILY [facility] Last Admin: 06/02/17 07:57 Dose: 1,000 mcg Folic Acid (Folvite) 1 mg PO DAILY [facility] Last Admin: 06/02/17 07:57 Dose: 1 mg CEFTRIAXONE 2GM/50 ML BAG 2 gm (/ Device) 50 mls @ 100 mls/hr IVPB Q24HR [facility] Last Admin: 06/01/17 10:27 Dose: 50 mls Iron/Minerals/Multivitamins (Theragran M) 1 tab PO DAILY [facility] Last Admin: 06/02/17 07:58 Dose: 1 tab Lorazepam (Ativan) 0.5 mg SLOW IVP Q6H PRN PRN Reason: Anxiety Last Admin: 05/30/17 10:21 Dose: 0.5 mg Lorazepam (Ativan) 1 mg SLOW IVP Q15MIN PRN PRN Reason: .TWITCHES OR TICS Last Admin: 06/01/17 20:51 Dose: 1 mg Meperidine HCl (Demerol) 50 mg IM Q4H PRN PRN Reason: Severe Pain (7-10) Last Admin: 06/01/17 20:02 Dose: 50 mg Morphine Sulfate (Morphine) 5 mg SLOW IVP Q6H PRN PRN Reason: Moderate Pain (4-6) Last Admin: 06/02/17 07:47 Dose: 5 mg Promethazine HCl (Phenergan) 25 mg IM Q4H PRN PRN Reason: Nausea Last Admin: 06/01/17 20:02 Dose: 25 mg Sodium Chloride (Flush - Normal Saline) 10 ml IVF Q12HR [facility] Last Admin: 06/02/17 07:58 Dose: 10 ml Sodium Chloride (Flush - Normal Saline) 10 ml IVF PRN PRN PRN Reason: Saline Flush Last Admin: 06/01/17 15:08 Dose: 10 ml Thiamine HCl (Thiamine) 100 mg PO DAILY [facility] Last Admin: 06/02/17 07:57 Dose: 100 mg Tramadol HCl (Ultram) 50 mg PO Q6H PRN PRN Reason: Pain Last Admin: 05/29/17 15:27 Dose: 50 mg
[2017-06-02] MEDS ORDERED: Senokot 8.6 MG TAB PO PRN (11:09)
[2017-06-02] MEDS ORDERED: Bisacodyl 10 MG SUPP PR PRN (11:09)
[2017-06-02] MEDS ORDERED: Acetaminophen 325 MG TAB PO PRN (11:09)
[2017-06-02] MEDS ORDERED: Milk Of Magnesia 30 ML UDCUP PO PRN (11:09)
[2017-06-02] MEDS ORDERED: Ondansetron ODT 4 MG TAB PO PRN (11:09)
[2017-06-02] MEDS ORDERED: Eucerin (Mineral Oil/Petrolatum,White) 30 gm Jar TOP PRN (11:09)
[2017-06-02] MEDS ORDERED: Loratadine 10 MG TAB PO PRN (11:09)
[2017-06-02] MEDS ORDERED: Chloraseptic Spray 180 ml Bottle PO PRN (11:09)
[2017-06-02] MEDS ORDERED: Ondansetron HCl/PF 4 MG/2 ML Vial IVP PRN (11:09)
[2017-06-02] MEDS ORDERED: Zolpidem Tartrate 5 MG TAB PO PRN (11:09)
[2017-06-02] MEDS ORDERED: Mag-Al 1200 mg/1200 mg/30 ML UDCUP PO PRN (11:09)
[2017-06-02] MEDS ORDERED: Sodium Chloride 0.65% Nasal 44 ML BOT EA NARE PRN (11:09)
[2017-06-02] MEDS ORDERED: Artificial Tears 18 DROP/0.9 ML EA EYE PRN (11:09)
[2017-06-02] MEDS ORDERED: Diabetic Tussin 200 MG/10 ML UDCUP PO PRN (11:09)
[2017-06-02] MEDS ORDERED: hydrALAZINE 20 MG/ML VIAL SLOW IVP PRN (11:09)
[2017-06-02] MEDS ORDERED: ALPRAZolam 1 MG TAB PO PRN (11:10)
[2017-06-02] MEDS: CEFTRIAXONE 2GM/50 ML BAG 2 GM in Premix Bag 1 BAG IVPB SCH (11:35)
[2017-06-02] MEDS: HYDROcodone/Acetaminophen 7.5/325 mg Tablet PO PRN (11:36)
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
[2017-06-02] MEDS: Promethazine HCl 25 MG/ML VIAL IM PRN ×2 (13:00→19:16)
[2017-06-02] MEDS: Famotidine 20 MG TAB PO SCH (21:12)
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
[2017-06-03] MEDS: HYDROcodone/Acetaminophen 7.5/325 mg Tablet PO PRN (06:39)
[2017-06-03] MEDS: Famotidine 20 MG TAB PO SCH (08:42)
[2017-06-03] MEDS: Folic Acid 1 MG TAB PO SCH (08:42)
[2017-06-03] MEDS: Multivitamin W/ Minerals 1 TAB PO SCH (08:42)
[2017-06-03] MEDS: Cyanocobalamin (Vitamin B-12) 1,000 MCG TAB PO SCH (08:43)
--- NOTE | 2017-06-03 09:44 | PDOC.PN ---
- Subjective Encounter Start Date: 06/03/17 Encounter Start Time: 07:40 Patient seen and examined. No new complaints. No overnight events - Objective MAR Reviewed: Yes Vital Signs & Weight: Vital Signs (12 hours) Temp Pulse Resp BP Pulse Ox 06/03/17 07:44 98 F 64 16 158/83 H 96 06/03/17 04:07 98.6 F 64 18 144/86 H 96 06/03/17 00:37 97.7 F 70 19 161/86 H 97 Weight Weight 219 lb 12.814 oz I&O: 06/02/17 06/03/17 06/04/17 06:59 06:59 06:59 Intake Total 1290 Balance 1290 Result Diagrams: 05/30/17 03:48 06/01/17 21:11 Phys Exam - Physical Examination Constitutional: NAD HEENT: PERRLA, moist MMs, sclera anicteric Neck: no JVD, supple Respiratory: no wheezing, no rales, no rhonchi Cardiovascular: RRR, no significant murmur, no rub Gastrointestinal: soft, non-tender, no distention, positive bowel sounds Musculoskeletal: no edema, pulses present left hand with dressing Neurological: non-focal, normal sensation Lymphatic: no nodes Psychiatric: normal affect, A&O x 3 Skin: no rash, normal turgor Dx/Plan (1) Osteomyelitis of finger of left hand Code(s): M86.9 - OSTEOMYELITIS, UNSPECIFIED Status: Acute (2) Hypokalemia Code(s): E87.6 - HYPOKALEMIA Status: Acute (3) Rhabdomyolysis Code(s): M62.82 - RHABDOMYOLYSIS Status: Acute (4) Sepsis Code(s): A41.9 - SEPSIS, UNSPECIFIED ORGANISM Status: Acute (5) Toxic metabolic encephalopathy Code(s): G92 - TOXIC ENCEPHALOPATHY Status: Resolved (6) Degenerative joint disease of spine Code(s): M47.9 - SPONDYLOSIS, UNSPECIFIED Status: Chronic (7) HTN (hypertension) Code(s): I10 - ESSENTIAL (PRIMARY) HYPERTENSION Status: Chronic Comment: stable (8) Macrocytic anemia Code(s): D53.9 - NUTRITIONAL ANEMIA, UNSPECIFIED Status: Chronic (9) Drug overdose Code(s): T50.901A - POISONING BY UNSP DRUG/MEDS/BIOL SUBST, ACCIDENTAL, INIT Status: Resolved - Plan cont current plan of care, 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 * stable for discharge Review of Systems - Review of Systems ENT: negative: Ear Pain, Ear Discharge, Nose Pain, Nose Discharge, Nose Congestion, Mouth Pain, Mouth Swelling, Throat Pain, Throat Swelling, Other Respiratory: negative: Cough, Dry, Shortness of Breath, Hemoptysis, SOB with Excertion, Pleuritic Pain, Sputum, Wheezing Cardiovascular: negative: chest pain, palpitations, orthopnea, paroxysmal nocturnal dyspnea, edema, light headedness, other Gastrointestinal: negative: Nausea, Vomiting, Abdominal Pain, Diarrhea, Constipation, Melena, Hematochezia, Other Genitourinary: negative: Dysuria, Frequency, Incontinence, Hematuria, Retention , Other Musculoskeletal: negative: Neck Pain, Shoulder Pain, Arm Pain, Back Pain, Hand Pain, Leg Pain, Foot Pain, Other Skin: negative: Rash, Lesions, Osman, Bruising, Other - Medications/Allergies Allergies/Adverse Reactions: Allergies Allergy/AdvReac Type Severity Reaction Status Date / Time oxycodone [Oxycodone] Allergy Severe CONFUSION Verified 10/13/12 20:14 Medications: Current Medications Acetaminophen (Tylenol) 650 mg PO Q4H PRN PRN Reason: Headache/Fever or Mild Pain Hydrocodone Bitart/Acetaminophen ([place] 7.5/325) 2 tab PO Q12H PRN PRN Reason: Mild Pain (1-3) Last Admin: 06/03/17 06:39 Dose: 2 tab Al Hydroxide/Mg Hydroxide (Maalox) 15 ml PO Q4H PRN PRN Reason: Heartburn or Indigestion Alprazolam (Xanax) 1 mg PO Q12HR PRN PRN Reason: Anxiety Artificial Tears (Tears Naturale) 0 drop EA EYE PRN PRN PRN Reason: Dry Eyes Bisacodyl (Dulcolax) 10 mg [place] DAILYPRN PRN PRN Reason: Constipation Cyanocobalamin (Vitamin B-12) 1,000 mcg PO DAILY [facility] Last Admin: 06/03/17 08:43 Dose: 1,000 mcg Famotidine (Pepcid) 20 mg PO BID [facility] Last Admin: 06/03/17 08:42 Dose: 20 mg Folic Acid (Folvite) 1 mg PO DAILY [facility] Last Admin: 06/03/17 08:42 Dose: 1 mg Guaifenesin (Robitussin Sf) 200 mg PO Q4H PRN PRN Reason: Cough Hydralazine HCl (Apresoline) 10 mg SLOW IVP Q4H PRN PRN Reason: Systolic BP > 180 CEFTRIAXONE 2GM/50 ML BAG 2 gm (/ Device) 50 mls @ 100 mls/hr IVPB Q24HR [facility] Last Admin: 06/02/17 11:35 Dose: 50 mls Iron/Minerals/Multivitamins (Theragran M) 1 tab PO DAILY [facility] Last Admin: 06/03/17 08:42 Dose: 1 tab Loratadine (Claritin) 10 mg PO DAILYPRN PRN PRN Reason: Sinus Symptoms Lorazepam (Ativan) 0.5 mg SLOW IVP Q6H PRN PRN Reason: Anxiety Last Admin: 05/30/17 10:21 Dose: 0.5 mg Lorazepam (Ativan) 1 mg SLOW IVP Q15MIN PRN PRN Reason: .TWITCHES OR TICS Last Admin: 06/01/17 20:51 Dose: 1 mg Magnesium Hydroxide (Milk Of Magnesium) 30 ml PO DAILYPRN PRN PRN Reason: Constipation Meperidine HCl (Demerol) 50 mg IM Q4H PRN PRN Reason: Severe Pain (7-10) Last Admin: 06/02/17 19:16 Dose: 50 mg Mineral Oil/White Petrolatum (Eucerin Cream) 0 gm TOP BIDPRN PRN PRN Reason: Dry Skin Morphine Sulfate (Morphine) 5 mg SLOW IVP Q6H PRN PRN Reason: Moderate Pain (4-6) Last Admin: 06/02/17 16:06 Dose: 5 mg Ondansetron HCl (Zofran Odt) 4 mg PO Q6H PRN PRN Reason: Nausea/Vomiting Ondansetron HCl (Zofran) 4 mg IVP Q6H PRN PRN Reason: Nausea/Vomiting Phenol (Chloraseptic [place] 180 Ml Bot) 0 ml PO PRN PRN PRN Reason: Sore Throat Promethazine HCl (Phenergan) 25 mg IM Q4H PRN PRN Reason: Nausea Last Admin: 06/02/17 19:16 Dose: 25 mg Senna (Senokot) 2 tab PO HSPRN PRN PRN Reason: Constipation Sodium Chloride (Flush - Normal Saline) 10 ml IVF Q12HR [facility] Last Admin: 06/02/17 21:14 Dose: 10 ml Sodium Chloride (Flush - Normal Saline) 10 ml IVF PRN PRN PRN Reason: Saline Flush Last Admin: 06/01/17 15:08 Dose: 10 ml Sodium Chloride ([place] Nasal [place] 0.65%) 0 ml EA NARE QIDPRN PRN PRN Reason: Nasal Congestion Thiamine HCl (Thiamine) 100 mg PO DAILY [facility] Last Admin: 06/03/17 08:42 Dose: 100 mg Tramadol HCl (Ultram) 50 mg PO Q6H PRN PRN Reason: Pain Last Admin: 05/29/17 15:27 Dose: 50 mg Zolpidem Tartrate (Ambien) 5 mg PO HSPRN PRN PRN Reason: Insomnia
--- NOTE | 2017-06-03 09:58 | ADD-DIS ---
ADDENDUM Please see discharge summary dictated by Dr. Woodrow Bellamy for further details. There is no signif icant change in my discharge summary as well. Discharge diagnoses and further details have already m entioned in his discharge summary. Only important information I am giving on discharge summary is th at Dr. Beavers was consulted and he recommended IV antibiotic therapy. This patient will continue IV R ocephin 2 grams daily till 06/21/2016 and after that patient will continue Keflex 500 mg t.i.d. and C leocin 450 mg t.i.d. for another 3 weeks. During this period, patient will have weekly CBC, CMP, and CRP. The patient will follow up with Dr. Troy and Dr. Beavers as well as Neurosurgery. He was continued to complain of neck pain, back pain, and that is why he had radiological x-ray of th oracic, lumbar and cervical spine. He already had MRI as an outpatient basis and neurosurgeon recomm ended outpatient followup. This patient is seen and examined at bedside today. Please see my progress note from today for furth er details.
[2017-06-03] MEDS: CEFTRIAXONE 2GM/50 ML BAG 2 GM in Premix Bag 1 BAG IVPB SCH (10:48)
[2017-06-03 11:56] VITALS: BP 131/80; TEMP 98.2
== END 2017-06-03 16:17 | disposition home or self-care (01) | DRG 907 ==
LOC: ERS 19:47 → SURG B 05-27 00:01
PROVIDERS: ADMIT Internal Medicine; ATTEND Internal Medicine
PROC: 0PBV0ZZ Excision of Left Finger Phalanx, Open Approach (ICD-10-PCS; 2017-05-27)
PROC: 02HV33Z Insertion of Infusion Device into Superior Vena Cava, Percutaneous Approach (ICD-10-PCS; 2017-05-30)
PROC: B548ZZA Ultrasonography of Superior Vena Cava, Guidance (ICD-10-PCS; 2017-05-30)
PROC: 0PBV0ZZ Excision of Left Finger Phalanx, Open Approach (ICD-10-PCS; principal; 2017-05-31)
DX: T40.5X1A Poisoning by cocaine, accidental (unintentional), initial encounter (principal); A41.9 Sepsis, unspecified organism; G92 Toxic encephalopathy; M62.82 Rhabdomyolysis; M86.8X4 Other osteomyelitis, hand; F19.939 Other psychoactive substance use, unspecified with withdrawal, unspecified; L02.512 Cutaneous abscess of left hand; S62.601B Fracture of unspecified phalanx of left index finger, initial encounter for open fracture; K74.60 Unspecified cirrhosis of liver; D53.9 Nutritional anemia, unspecified; B19.20 Unspecified viral hepatitis C without hepatic coma; E87.6 Hypokalemia; I10 Essential (primary) hypertension; T43.621A Poisoning by amphetamines, accidental (unintentional), initial encounter; T42.4X1A Poisoning by benzodiazepines, accidental (unintentional), initial encounter; Z87.820 Personal history of traumatic brain injury; F17.210 Nicotine dependence, cigarettes, uncomplicated; F14.10 Cocaine abuse, uncomplicated; F15.10 Other stimulant abuse, uncomplicated; F41.9 Anxiety disorder, unspecified; F32.9 Major depressive disorder, single episode, unspecified; B95.61 Methicillin susceptible Staphylococcus aureus infection as the cause of diseases classified elsewhere; M50.30 Other cervical disc degeneration, unspecified cervical region; M51.37 Other intervertebral disc degeneration, lumbosacral region; M48.07 Spinal stenosis, lumbosacral region; W34.00XA Accidental discharge from unspecified firearms or gun, initial encounter; Y92.019 Unspecified place in single-family (private) house as the place of occurrence of the external cause
CPT/HCPCS: 36415; 36569; 72040; 72072; 72100; 80048; 80053; 80202; 80306; 80307; 82140; 82550; 83605; 83735; 84100; 85025; 86140; 87040; 87070; 87077; 87186; 87205; 90471; 90682; 96361; 96365; A4216; C1713; C1751; G0008; J0131; J0696; J1100; J1170; J1200; J1644; J1885; J2001; J2060; J2175; J2270; J2405; J2550; J2704; J3010; J3260; J3370; J3480; J3490; J7042; J7050; Q2036; S0020

== ENCOUNTER 2017-08-23 00:47 | Emergency (ER) | payer SELFPAY | END 2017-08-23 02:25 | LOC: ERS 00:47 | DX: Z02.89 Encounter for other administrative examinations (principal) | CPT/HCPCS: 99283 ==

== ENCOUNTER 2018-08-31 16:42 | Emergency (ER) | payer SELFPAY, BC ==
[2018-08-31] MEDS ORDERED: Ketorolac Tromethamine 60 MG/2 ML VIAL ONE (17:53)
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
== END 2018-08-31 19:03 | disposition home or self-care (01) ==
LOC: ERS 16:42
DX: S00.03XA Contusion of scalp, initial encounter (principal); M54.5 Low back pain; M54.2 Cervicalgia; G89.29 Other chronic pain; I10 Essential (primary) hypertension; F41.9 Anxiety disorder, unspecified; F17.210 Nicotine dependence, cigarettes, uncomplicated; V89.2XXA Person injured in unspecified motor-vehicle accident, traffic, initial encounter
CPT/HCPCS: 70450; 72125; 72131; 96372; J1885

== ENCOUNTER 2018-10-10 08:54 | Outpatient (CLI) | payer BC ==
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
== END 2018-10-10 08:55 | disposition home or self-care (01) ==
LOC: TBSIIMAG 08:54
PROVIDERS: ATTEND Neurological Surgery
DX: M47.22 Other spondylosis with radiculopathy, cervical region (principal); M47.816 Spondylosis without myelopathy or radiculopathy, lumbar region; M43.17 Spondylolisthesis, lumbosacral region; M48.061 Spinal stenosis, lumbar region without neurogenic claudication; M48.07 Spinal stenosis, lumbosacral region; M48.02 Spinal stenosis, cervical region; M50.11 Cervical disc disorder with radiculopathy, high cervical region; Z98.890 Other specified postprocedural states
CPT/HCPCS: 72141; 72148

== ENCOUNTER 2019-01-22 08:21 | Observation (INO) | payer BC ==
[2019-01-19 16:36] VITALS: BMI 30.3
[2019-01-22 09:18] LABS: Hemoglobin 14.5 g/dL (14.0-18.0); Mean Corpuscular HGB CONC 34.2 g/dL (32.0-36.0); Mean Corpuscular Hemoglobin 33.7 pg (27.0-31.0); Mean Corpuscular Volume 98.5 fL (78.0-98.0); Mean Platelet Volume 9.1 fL (7.4-10.4); Platelet Count 259 thou/uL (130-400); RBC Distribution Width 14.5 % (11.5-14.5); Red Blood Cell (RBC) Count 4.31 mill/uL (4.70-6.10); White Blood Cell (WBC) Count 12.8 thou/uL (4.8-10.8)
[2019-01-22 09:28] LABS: Anion Gap 12 mmol/L (10-20); BUN (Urea Nitrogen) 11 mg/dL (8.4-25.7); Calc. Creatinine Clearance 117 mL/min (70-130); Calcium 9.2 mg/dL (7.8-10.44); Carbon Dioxide 26 mmol/L (22-29); Chloride 106 mmol/L (98-107); Estimated GFR-MDRD 76; Glucose 69 mg/dL (70-105); Potassium 4.1 mmol/L (3.5-5.1); Sodium 140 mmol/L (136-145)
[2019-01-22 09:30] LABS: Band 6 % (5-11); Eosinophils 2 % (0-10); Lymphocytes 41 % (21-51); MDiff Complete? YES; Monocytes 15 % (0-10); Neutrophil 32 % (42-75); RBC Morphology Normal; Reactive Lymphocytes 4 % (0-10)
[2019-01-22] MEDS ORDERED: Fentanyl 100 MCG/2 ML VIAL ONE ×4 (10:15→14:26)
[2019-01-22] MEDS ORDERED: Sodium Chloride 0.9% 10 ML ONE (11:05)
[2019-01-22] MEDS ORDERED: Midazolam HCl 2 mg/2 ml Vial ONE (11:48)
[2019-01-22] MEDS ORDERED: SUGAMMADEX SODIUM 500 MG/5 ML VIAL ONE (12:56)
[2019-01-22] MEDS ORDERED: Rocuronium Bromide 10 MG/ML (10ML VIAL) ONE (14:43)
[2019-01-22] MEDS ORDERED: Dexamethasone 20 MG/5 ML VIAL ONE (14:43)
[2019-01-22] MEDS ORDERED: Ondansetron PF 4 MG/2 ML Vial ONE (14:43)
[2019-01-22] MEDS ORDERED: PROPOFOL 200 MG/20 ML VIAL ONE (14:43)
[2019-01-22] MEDS ORDERED: PHENYLEPHRINE-NS 100 MCG/ML 10 ML SYRINGE ONE (14:43)
[2019-01-22] MEDS ORDERED: Glycopyrrolate 0.2 MG/ML 5 ML SYRINGE ONE (14:43)
[2019-01-22] MEDS ORDERED: Lidocaine 1% PF 5 ML VIAL ONE (14:43)
[2019-01-22] MEDS ORDERED: ePHEDrine 50 MG/ML VIAL ONE (14:43)
--- NOTE | 2019-01-22 15:20 | EKG ---
Test Reason : PREOP Blood Pressure : / mmHG Vent. Rate : 070 BPM Atrial Rate : 070 BPM P-R Int : 180 ms QRS Dur : 084 ms QT Int : 396 ms P-R-T Axes : 078 075 022 degrees QTc Int : 427 ms Normal sinus rhythm Septal infarct , age undetermined Abnormal ECG When compared with ECG of 28-SEP-2012 13:14, Septal infarct is now Present Nonspecific T wave abnormality now evident in Inferior leads Confirmed by DR. Braulio MILES ([id number]) on 01/22/2019 3:20:24 PM Referred By: YOSEF Confirmed By:DR. Braulio MILES
--- NOTE | 2019-01-22 15:42 | OP ---
DATE OF PROCEDURE: 01/22/2019 TOP LIFT NAILER: Gavin Spear PA-C PROCEDURES PERFORMED: Anterior cervical diskectomy and osteophytectomy C4 through C7 and interbody arthrodesis anterior titanium fixation C4 through C7. DESCRIPTION OF PROCEDURE: The patient was brought to the operating room and intubated. He was positioned supine with the head in modest extension on a gel-filled donut. An incision was made exposing the anterior cervical spinal, and the level was confirmed by x-ray. As expected, the patient had dramatic osteophytic disease from C4 through C7. I debrided the osteophytic disease with extensive efforts using handheld rongeurs. After finding out the osteophytic disease, we explored the disk spaces, and could not find meaningful remaining disk spaces at any of the visualized levels. Whatever remaining disk was identified, was removed and debrided for the purpose arthrodesis. There was certainly no space to place intervertebral devices. After completely decompressed the osteophytic disease, an anterior plate was then brought in the field and secured to C4, C5, C6, and C7 using two 14-mm screws at each level. The wound was then extensively irrigated and MAC hemostasis was secured. The wound was closed in anatomic layers over drain. Job ID: [id number]
[2019-01-22] MEDS ORDERED: Promethazine 25 MG TAB PO PRN (16:23)
[2019-01-22] MEDS ORDERED: traMADol HCl 50 MG TAB PO PRN ×2 (16:23)
[2019-01-22] MEDS ORDERED: tiZANidine HCl 4 MG TAB PO PRN (16:23)
[2019-01-22] MEDS ORDERED: Milk Of Magnesia 30 ML UDCUP PO PRN (16:23)
[2019-01-22] MEDS ORDERED: Ondansetron PF 4 MG/2 ML Vial IVP PRN (16:23)
[2019-01-22] MEDS ORDERED: diphenhydrAMINE 25 MG CAP PO PRN (16:23)
[2019-01-22] MEDS ORDERED: diphenhydrAMINE 50 MG/ML VIAL IVP PRN (16:23)
[2019-01-22] MEDS ORDERED: Promethazine HCl 25 MG/ML VIAL IM PRN (16:23)
[2019-01-22] MEDS ORDERED: HYDROcodone/Acetaminophen 10/325 mg Tablet PO PRN (16:23)
[2019-01-22] MEDS ORDERED: Mag-Al 1200 mg/1200 mg/30 ML UDCUP PO PRN (16:23)
[2019-01-22] MEDS ORDERED: Promethazine HCl 12.5 MG SUPP PR PRN (16:23)
[2019-01-22] MEDS: Morphine 2 MG/ML SYRINGE SLOW IVP PRN (16:51)
[2019-01-22] MEDS: Sodium Chloride 0.9% 1,000 ML IV SCH (17:32)
[2019-01-22] MEDS: HYDROcodone/Acetaminophen 10/325 mg Tablet PO PRN ×2 (18:17→22:48)
[2019-01-22] MEDS ORDERED: Tamsulosin HCl 0.4 MG CAP PO SCH (20:45)
[2019-01-22] MEDS: CEFAZOLIN 2 GM in Premix Bag 1 BAG IVPB SCH (21:17)
[2019-01-23] MEDS: HYDROcodone/Acetaminophen 10/325 mg Tablet PO PRN ×4 (04:31→22:08)
[2019-01-23] MEDS ORDERED: Acetaminophen/Codeine 30-300mg Tablet PO PRN (05:17)
[2019-01-23] MEDS: Sodium Chloride 0.9% 1,000 ML IV SCH ×2 (05:18→16:32)
[2019-01-23] MEDS: CEFAZOLIN 2 GM in Premix Bag 1 BAG IVPB SCH ×3 (06:15→22:02)
--- NOTE | 2019-01-23 06:16 | PRG ---
DATE OF SERVICE: 01/23/2019 SUBJECTIVE: The patient is a 58-year-old male, who is status post C4- C7 ACDF. He is postoperative day #1. Following the surgery, he was transitioned to the Med/Surg floor. His pain has been well controlled with p.o. medications, he is tolerating a regular diet. He has some difficulty with postop urinary retention and required I and O cath last night. This appears to be improving with time and the addition of Flomax. His DESMOND drain which was placed intraoperatively had 90 mL of output overnight. This morning, he is sitting up, comfortable. He has been ambulating with his walker. He has no complaints at this time. OBJECTIVE: The patient is sitting up, comfortable, awake, alert, oriented x4. Free active range of motion of all extremities. He has a slightly unsteady gait which is at his baseline with walker. His incision is clean, dry, intact. DESMOND has dark red blood in the bulb. PLAN: We will continue to monitor his urinary output closely. Seems to be improving with time and the addition of Flomax. We will also continue to work on pain control and mobilization. I anticipate the patient will be able to return home in the next few days. Job ID: [id number] [facility]
[2019-01-23] MEDS: Multivitamin W/ Minerals 1 TAB PO SCH (08:03)
[2019-01-23] MEDS: Tamsulosin HCl 0.4 MG CAP PO SCH (08:03)
[2019-01-23] MEDS: ALPRAZolam 1 MG TAB PO SCH ×3 (08:03→20:41)
[2019-01-23] MEDS: Morphine 2 MG/ML SYRINGE SLOW IVP PRN (17:49)
[2019-01-24] MEDS: CEFAZOLIN 2 GM in Premix Bag 1 BAG IVPB SCH (06:46)
[2019-01-24 07:13] VITALS: BP 164/85; TEMP 97.6
[2019-01-24] MEDS: HYDROcodone/Acetaminophen 10/325 mg Tablet PO PRN (07:18)
[2019-01-24] MEDS: Sodium Chloride 0.9% 1,000 ML IV SCH (07:35)
[2019-01-24] MEDS: Tamsulosin HCl 0.4 MG CAP PO SCH (07:40)
[2019-01-24] MEDS: Multivitamin W/ Minerals 1 TAB PO SCH (07:40)
[2019-01-24] MEDS: ALPRAZolam 1 MG TAB PO SCH (07:40)
--- NOTE | 2019-01-25 04:25 | DIS ---
DATE OF ADMISSION: 01/22/2019 DATE OF DISCHARGE: 01/24/2019 HOSPITAL COURSE: The patient is a 58-year-old male, who underwent C4-C7 ACDF for cervical stenosis. Following the surgery, he was transitioned to the Med/Surg floor, where his pain has been well controlled with p.o. medications, he has been tolerating regular diet. The patient did initially had some issues with postop urinary retention and required I and O cath. However, this improved during his admission course and with Flomax treatment. He is now urinating without difficulty. He has also been working with Physical Therapy and ambulating in the halls with his walker without significant difficulty. On exam this morning, the patient is resting comfortably, awakens easily. He has free active range of motion of all extremities, no focal motor weakness. His incision is clean, dry, and intact. He has serosanguineous drainage of small amount in the bulb. DESMOND output was 40 mL overnight. We will plan to remove his DESMOND drain and discontinue his IV antibiotics. The patient will be discharged to home later today. I have discussed home care precautions. We will follow up with the patient in 2 weeks. Job ID: [id number]
== END 2019-01-24 10:30 | disposition home or self-care (01) ==
LOC: SDC 08:21 → SURG A 14:50
PROVIDERS: ADMIT Neurological Surgery; ATTEND Neurological Surgery
PROC: 0RG20J0 Fusion of 2 or more Cervical Vertebral Joints with Synthetic Substitute, Anterior Approach, Anterior Column, Open Approach (ICD-10-PCS; principal; 2019-01-22)
PROC: 0RT30ZZ Resection of Cervical Vertebral Disc, Open Approach (ICD-10-PCS; 2019-01-22)
DX: M48.02 Spinal stenosis, cervical region (principal); M54.12 Radiculopathy, cervical region; I10 Essential (primary) hypertension; K74.60 Unspecified cirrhosis of liver; Z79.899 Other long term (current) drug therapy
CPT/HCPCS: 36415; 76000; 80048; 85025; 93005; 93010; 96365; 96366; 96375; 96376; C1713; C1768; G0378; J0690; J1100; J2001; J2250; J2270; J2405; J2704; J3010; J3490; Q0163

== ENCOUNTER 2019-02-06 16:08 | Outpatient (CLI) | payer BC ==
--- NOTE | 2019-02-06 16:25 | RAD ---
XR Cerv Sp Ap Lat STANDARD History: M [age] cervical radiculopathy Comparison: Cervical spine radiograph 2018 Findings: New ACDF hardware at C4-C7. No acute fracture or malalignment. No significant listhesis. Op en-mouth odontoid view is normal. Triangular shaped radiopacity continues to project over the left neck soft tissues at the C6 level. Impression: Satisfactory postoperative appearance.
== END 2019-02-06 16:09 | disposition home or self-care (01) ==
LOC: TBSIIMAG 16:08
PROVIDERS: ATTEND Neurological Surgery
DX: M54.12 Radiculopathy, cervical region (principal); Z98.890 Other specified postprocedural states
CPT/HCPCS: 72040

== ENCOUNTER 2019-02-12 11:54 | Emergency (ER) | payer BC ==
[2019-02-12] MEDS ORDERED: ISOVUE-370 76%-LOCM 1 ML ONE (12:35)
[2019-02-12] MEDS ORDERED: Morphine 4 MG/ML VIAL ONE ×2 (13:11→14:16)
[2019-02-12] MEDS ORDERED: Ondansetron PF 4 MG/2 ML Vial ONE ×2 (13:11→14:16)
[2019-02-12 13:17] LABS: #Eosinphils 0.1 thou/uL (0.0-0.7); #Lymphocytes 3.4 thou/uL (1.20-3.40); #Monocytes 1.7 thou/uL (0.11-0.59); #Neutrophils 9.4 thou/uL (1.40-6.50); %Basophils 0.3 % (0.0-1.0); %Eosinophils 0.8 % (0.0-10.0); %Monocytes 11.3 % (0.0-10.0); %Neutrophils 64.6 % (42.0-75.0); Hemoglobin 14.2 g/dL (14.0-18.0); Mean Corpuscular HGB CONC 34.3 g/dL (32.0-36.0); Mean Corpuscular Hemoglobin 33.7 pg (27.0-31.0); Mean Platelet Volume 8.6 fL (7.4-10.4); Platelet Count 294 thou/uL (130-400); RBC Distribution Width 13.9 % (11.5-14.5); Red Blood Cell (RBC) Count 4.21 mill/uL (4.70-6.10); White Blood Cell (WBC) Count 14.6 thou/uL (4.8-10.8)
[2019-02-12 13:40] LABS: ALT (SGPT) 22 U/L (8-55); AST (SGOT) 27 U/L (5-34); Albumin 4.3 g/dL (3.5-5.0); Alkaline Phosphatase 79 U/L (40-110); Anion Gap 12 mmol/L (10-20); BUN (Urea Nitrogen) 7 mg/dL (8.4-25.7); Bilirubin, Total 0.8 mg/dL (0.2-1.2); Calc. Creatinine Clearance 0 mL/min (70-130); Calcium 9.2 mg/dL (7.8-10.44); Carbon Dioxide 25 mmol/L (22-29); Chloride 105 mmol/L (98-107); Estimated GFR-MDRD 86; Globulin 3.7 g/dL (2.4-3.5); Glucose 125 mg/dL (70-105); Lipase 21 U/L (8-78); Potassium 3.6 mmol/L (3.5-5.1); Sodium 138 mmol/L (136-145)
--- NOTE | 2019-02-12 14:05 | CT ---
EXAM: CT Abdomen Pelvis W Con PROVIDED CLINICAL HISTORY: Abdominal pain COMPARISON: None FINDINGS: The visualized lung bases are free of significant opacity. Chronic ununited left sided rib fractures are demonstrated. There is a peripheral nodular contour to the liver suggesting cirrhosis. There is no evidence for hep atic mass or biliary ductal dilatation. Heterogeneous density probably reflecting gallstone is seen within a nondistended gallbladder. A subcentimeter nodular density involves the left adrenal gland, s table with respect to 03/22/2014. The solid abdominal organs demonstrate an otherwise unremarkable CT appearance. There is no bowel dilatation, inflammatory fat stranding, free fluid or free air apparent. There is a small fat-containing umbilical hernia as well as diastasis of the rectus musculature. Vascular calcifications are noted. IVC filter is seen. The appendix appears normal. The osseous structures demonstrate no concerning lytic or blastic lesions. Posttraumatic changes are seen. IMPRESSION: 1. No evidence for an acute process. 2. Chronic findings as above.
[2019-02-12 15:50] LABS: Bilirubin Negative (Negative); Blood, Urine Negative (Negative); Clarity Clear (Clear); Glucose, Urine (Dipstick) Normal (Negative); Leukocyte Negative Leu/uL (Negative); Nitrite Negative (Negative); Protein, Urine (Dipstick) Negative (Neg-Trace); Urobilinogen Normal mg/dL (Less than 2)
--- NOTE | 2019-02-12 16:01 | ULT ---
Gallbladder ultrasound: Multiple grayscale images of right upper quadrant obtained according to protocol. INDICATION: Pain FINDINGS: Liver: There is coarsened, increased echogenicity of the liver. Nodular contour of the liver is prese nt. Gallbladder: Multifocal increased echogenicity of the gallbladder lumen. This may relate to cholelith iasis and/or tumefactive sludge. Gallbladder wall: No abnormal thickening. Davis's Sign: Negative Common bile duct is within normal limits at 5 mm. Ascites: None IMPRESSION: 1. Coarsened echotexture of the liver with nodular morphology, compatible with cirrhosis. 2. Cholelithiasis and/or component of tumefactive sludge. No sonographic evidence to confirm acute ch olecystitis.
[2019-02-12] MEDS ORDERED: Acetaminophen/Codeine 30-300mg Tablet ONE (16:47)
== END 2019-02-12 17:03 | disposition home or self-care (01) ==
LOC: ERS 11:54
DX: K43.9 Ventral hernia without obstruction or gangrene (principal); K80.20 Calculus of gallbladder without cholecystitis without obstruction; I10 Essential (primary) hypertension; F41.9 Anxiety disorder, unspecified; F17.210 Nicotine dependence, cigarettes, uncomplicated
CPT/HCPCS: 36415; 74177; 76705; 80053; 81003; 83690; 85025; 96361; 96374; 96375; 96376; J2270; J2405; Q9966

== ENCOUNTER 2019-02-16 10:12 | Day surgery (SDC) | payer BC ==
[2019-02-15 15:03] VITALS: BMI 30.3
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
[2019-02-16] MEDS ORDERED: Ketorolac Tromethamine 30 MG/ML VIAL ONE (10:21)
[2019-02-16] MEDS ORDERED: Bupivacaine HCl 0.5%/Epinephrine 1:200,000/PF 30 ml Vial ONE (10:36)
[2019-02-16] MEDS ORDERED: Fentanyl 100 MCG/2 ML VIAL ONE ×2 (10:46→12:49)
[2019-02-16] MEDS ORDERED: Ondansetron PF 4 MG/2 ML Vial ONE (11:25)
[2019-02-16] MEDS ORDERED: PROPOFOL 200 MG/20 ML VIAL ONE (11:25)
[2019-02-16] MEDS ORDERED: Lidocaine 1% PF 5 ML VIAL ONE (11:25)
[2019-02-16] MEDS ORDERED: Glycopyrrolate 0.2 MG/ML 5 ML SYRINGE ONE (11:25)
[2019-02-16] MEDS ORDERED: Succinylcholine Chloride 20 MG/ML 10 ml SYRINGE FS ONE (11:25)
[2019-02-16] MEDS ORDERED: Rocuronium Bromide 10 MG/ML (10ML VIAL) ONE (11:25)
[2019-02-16] MEDS ORDERED: HYDROcodone/Acetaminophen 5/325 mg Tablet ONE (13:20)
--- NOTE | 2019-02-16 17:47 | OP ---
DATE OF PROCEDURE: 02/16/2019 PREOPERATIVE DIAGNOSES: Cirrhosis, acute cholecystitis, cholelithiasis, incisional hernias. POSTOPERATIVE DIAGNOSES: Cirrhosis, acute cholecystitis, cholelithiasis, incisional hernias. PROCEDURES PERFORMED: Laparoscopic video cholecystectomy; core liver biopsies, cirrhotic liver. ANESTHESIA: General, local of 0.5% Marcaine With epinephrine 30 mL. DESCRIPTION OF PROCEDURE: The patient was taken to the operating room, where under general anesthesia, abdomen was prepared with ChloraPrep and draped in routine fashion. 0.5% Marcaine with epinephrine was infiltrated in the skin and subcutaneous tissue at each port site. Because of previous midline incision and previous splenectomy, traumatic incisions were made at right midclavicular and subcostal, and pneumoperitoneum to 15 mmHg was obtained with Veress needle, replaced with a 5 port, and laparoscope was inserted. Right lateral subcostal incision was made, and a 5 port was placed. Right subxiphoid incision was made, and an 11 port was placed. There were adhesions in the midline, thus an incision was made in the right lower quadrant, and a 5 port was placed under laparoscopic visualization. A video laparoscope entered this port. Liver was cirrhotic. Core liver biopsies were obtained x2 right lobe, and hemostasis was gained with cautery. Gallbladder was acutely inflamed. Omentum was adherent to it and was dissected free down to the cystic artery and duct. Critical view was obtained. Cystic artery and duct were doubly clipped proximally, divided, and gallbladder was carefully dissected free from the liver bed. It was densely adherent. There may be a segment of the gallbladder wall left adherent to the gallbladder fossa, and this was cauterized. The gallbladder was submitted to Pathology along with stones. The patient tolerated the procedure well. Good hemostasis was obtained with cautery and clips, and Mary was applied. Good hemostasis was noted. The gallbladder fragments were placed in gallbladder bag and removed and submitted to Pathology, stones also. Good hemostasis was noted. Irrigant and pneumoperitoneum were evacuated. All instruments were removed. All skin incisions were approximated with interrupted subdermal 4-0 Monocryl, and [place] glue was applied. Job ID: [id number]
== END 2019-02-16 15:57 | disposition home or self-care (01) ==
LOC: SDC 10:12
PROVIDERS: ATTEND Specialist
PROC: 0FB13ZX Excision of Right Lobe Liver, Percutaneous Approach, Diagnostic (ICD-10-PCS; principal; 2019-02-16)
PROC: 0FT44ZZ Resection of Gallbladder, Percutaneous Endoscopic Approach (ICD-10-PCS; principal; 2019-02-16)
DX: K80.12 Calculus of gallbladder with acute and chronic cholecystitis without obstruction (principal); B18.2 Chronic viral hepatitis C; K76.0 Fatty (change of) liver, not elsewhere classified; I10 Essential (primary) hypertension; F17.210 Nicotine dependence, cigarettes, uncomplicated; K43.2 Incisional hernia without obstruction or gangrene
CPT/HCPCS: 88304; 88307; 88313; J0131; J0670; J0690; J1885; J1956; J2001; J2405; J2704; J3010

== ENCOUNTER 2019-03-15 15:51 | Outpatient (CLI) | payer BC ==
--- NOTE | 2019-03-15 16:45 | RAD ---
XR Cerv Sp Ap Lat STANDARD History: M 48.02 cervical stenosis Comparison: Cervical spine radiographs February 06, 2019 Findings: Dense calcification dextro the left neck. Similar appearance ACDF hardware. No complication . Open-mouth odontoid view is limited due to rotation. Advanced degenerative disc space changes C2/C3 and C3/C4. Impression: Unchanged examination of the cervical spine.
== END 2019-03-15 15:52 | disposition home or self-care (01) ==
LOC: TBSIIMAG 15:51
PROVIDERS: ATTEND Neurological Surgery
DX: M48.02 Spinal stenosis, cervical region (principal)
CPT/HCPCS: 72040

== ENCOUNTER 2019-04-09 16:07 | Inpatient (IN) | payer BC ==
[2019-04-16] MEDS ORDERED: Sodium Chloride 0.9% 10 ML ONE (09:27)
[2019-04-16] MEDS ORDERED: Fentanyl 100 MCG/2 ML VIAL ONE ×5 (09:52→12:12)
[2019-04-16] MEDS ORDERED: Midazolam HCl 2 mg/2 ml Vial ONE (09:53)
[2019-04-16 09:55] LABS: #Basophils 0.1 thou/uL (0.0-0.2); #Eosinphils 0.4 thou/uL (0.0-0.7); #Lymphocytes 4.7 thou/uL (1.20-3.40); #Monocytes 1.2 thou/uL (0.11-0.59); #Neutrophils 3.7 thou/uL (1.40-6.50); %Basophils 0.8 % (0.0-1.0); %Eosinophils 3.6 % (0.0-10.0); %Lymphocytes 46.5 % (21.0-51.0); %Neutrophils 37.2 % (42.0-75.0); Hemoglobin 14.7 g/dL (14.0-18.0); Mean Corpuscular HGB CONC 33.5 g/dL (32.0-36.0); Mean Corpuscular Volume 98.4 fL (78.0-98.0); Mean Platelet Volume 8.5 fL (7.4-10.4); Platelet Count 310 thou/uL (130-400); RBC Distribution Width 13.5 % (11.5-14.5); Red Blood Cell (RBC) Count 4.46 mill/uL (4.70-6.10)
[2019-04-16 10:19] LABS: Anion Gap 13 mmol/L (10-20); BUN (Urea Nitrogen) 10 mg/dL (8.4-25.7); Calc. Creatinine Clearance 0 mL/min (70-130); Calcium 9.4 mg/dL (7.8-10.44); Carbon Dioxide 27 mmol/L (22-29); Chloride 104 mmol/L (98-107); Estimated GFR-MDRD 87; Glucose 92 mg/dL (70-105); Potassium 3.7 mmol/L (3.5-5.1); Sodium 140 mmol/L (136-145)
--- NOTE | 2019-04-16 11:13 | OP ---
DATE OF PROCEDURE: 04/16/2019 [employer] SPECIALIST: Gavin Spear PA-C PROCEDURES PERFORMED: L5-S1 decompressive laminectomy, posterolateral arthrodesis, pedicle screw instrumentation in L5-S1, demineralized bone matrix and local morselized autograft. DESCRIPTION OF PROCEDURE: The patient was brought to the operating room and intubated. He was rolled in prone position on gel-filled chest rolls. An incision was made exposing L5 and S1 bilaterally and the level was confirmed by x-ray. We performed a modest L5-S1 facetectomy and laminectomy for the purpose of decompression. We next placed pedicle screws at right L5 and right S1 using lateral fluoroscopic guidance and the position was confirmed by x-ray. The soila was secured between the screws, connected by nuts, which were final tightened. The wound was then extensively irrigated. MAC hemostasis was secured. A combination of demineralized bone matrix and local morselized autograft was laid over the lamina and posterolateral surfaces for the purpose of arthrodesis. Vancomycin powder was applied and the wound was then closed in anatomic layers. Job ID: [id number]
[2019-04-16] MEDS ORDERED: Tamsulosin HCl 0.4 MG CAP ONE (11:49)
[2019-04-16] MEDS ORDERED: PHENYLEPHRINE-NS 100 MCG/ML 10 ML SYRINGE ONE (12:00)
[2019-04-16] MEDS ORDERED: PROPOFOL 200 MG/20 ML VIAL ONE (12:00)
[2019-04-16] MEDS ORDERED: Dexamethasone 20 MG/5 ML VIAL ONE (12:00)
[2019-04-16] MEDS ORDERED: ePHEDrine/0.9% NaCl/PF SYRINGE 50 mg/10 ml ONE (12:00)
[2019-04-16] MEDS ORDERED: Ketorolac Tromethamine 30 MG/ML VIAL ONE (12:00)
[2019-04-16] MEDS ORDERED: Rocuronium Bromide 10 MG/ML (10ML VIAL) ONE (12:00)
[2019-04-16] MEDS ORDERED: Glycopyrrolate 0.2 MG/ML 5 ML SYRINGE ONE (12:00)
[2019-04-16] MEDS ORDERED: Ondansetron PF 4 MG/2 ML Vial ONE (12:00)
[2019-04-16] MEDS ORDERED: HYDROcodone/Acetaminophen 5/325 mg Tablet ONE (13:22)
--- NOTE | 2019-04-17 08:44 | DIS ---
DATE OF ADMISSION: 04/16/2019 DATE OF DISCHARGE: 04/16/2019 The patient is a 58-year-old male, who underwent L5-S1 decompression and fusion for lumbar spondylosis, degenerative disk disease, and spondylolisthesis. Following the surgery, he was transitioned to Day Stay, where his pain was well controlled with p.o. medications, he was tolerating a regular diet, and he was voiding appropriately. He ambulated easily in the department. He was discharged to home. I have discussed home care precautions, and we will follow up with the patient in 2 weeks with x-rays. Job ID: [id number]
== END 2019-04-16 13:40 | disposition home or self-care (01) | DRG 460 ==
LOC: SURG A 04-16 09:03
PROVIDERS: ADMIT Neurological Surgery; ATTEND Neurological Surgery
PROC: 0SG3071 Fusion of Lumbosacral Joint with Autologous Tissue Substitute, Posterior Approach, Posterior Column, Open Approach (ICD-10-PCS; principal; 2019-04-16)
PROC: 01NB0ZZ Release Lumbar Nerve, Open Approach (ICD-10-PCS; 2019-04-16)
PROC: 01NR0ZZ Release Sacral Nerve, Open Approach (ICD-10-PCS; 2019-04-16)
DX: M43.17 Spondylolisthesis, lumbosacral region (principal); M51.37 Other intervertebral disc degeneration, lumbosacral region; M47.896 Other spondylosis, lumbar region; I10 Essential (primary) hypertension; M19.90 Unspecified osteoarthritis, unspecified site; F17.210 Nicotine dependence, cigarettes, uncomplicated; F32.9 Major depressive disorder, single episode, unspecified; F41.9 Anxiety disorder, unspecified; Z98.1 Arthrodesis status; Z87.820 Personal history of traumatic brain injury; Z90.49 Acquired absence of other specified parts of digestive tract
CPT/HCPCS: 76000; 80048; 85025; 93005; 93010; C1713; C1768; J0690; J1100; J1885; J2250; J2405; J2704; J3010; J3370; J3490

== ENCOUNTER 2019-05-02 15:12 | Outpatient (CLI) | payer BC ==
--- NOTE | 2019-05-02 16:21 | RAD ---
EXAM: XR Lumbar Spine 2 Or 3 View PROVIDED CLINICAL HISTORY: Spondylolisthesis of lumbar region. Follow-up examination after surgery. COMPARISON: 05/30/2017 FINDINGS: There have been interval postsurgical changes related to posterior fusion at the lumbosacral junction . Interval right-sided pedicular screw and posterior rods transfix this level. The right-sided L5 pedicular screw may potentially be just lateral to the L5 vertebral body, and on this frontal project ion appears to overlie the adjacent soft tissues. Grade 1 anterolisthesis of L5 on S1 is again present. Multilevel osteophytes are seen. Narrowing of the intervertebral disc spaces at all levels o f lumbar spine are again noted. Multilevel facet hypertrophic changes are present. Laminectomy defects are seen at the L4-5 and L5-S1 levels. The vertebral body heights are within normal limits. IVC filter is again seen just to the right of midline overlying the L2-3 level. Surgical clips overli e the right upper quadrant. IMPRESSION: Interval postsurgical changes related to posterior fusion at the L4-5 level. The right sided pedicula r screw in the L5 vertebral body may be just lateral to the vertebral body. Follow-up CT evaluation may be helpful to evaluate exact positioning of the right-sided pedicular screw. Stable multilevel degenerative changes with persistent grade 1 anterolisthesis of L5 on S1.
== END 2019-05-02 15:13 | disposition home or self-care (01) ==
LOC: BICRAD 15:12
PROVIDERS: ATTEND Neurological Surgery
DX: M43.16 Spondylolisthesis, lumbar region (principal); M47.817 Spondylosis without myelopathy or radiculopathy, lumbosacral region; Z98.1 Arthrodesis status
CPT/HCPCS: 72100

== ENCOUNTER 2021-06-15 20:28 | Inpatient (IN) | payer BC, MEDICARE, SELFPAY ==
[2021-06-15] MEDS ORDERED: Fentanyl 100 MCG/2 ML VIAL ONE (20:34)
[2021-06-15 22:16] LABS: #Basophils 0.1 thou/uL (0.0-0.2); #Eosinphils 0.2 thou/uL (0.0-0.7); #Lymphocytes 2.4 thou/uL (1.20-3.40); #Monocytes 1.8 thou/uL (0.11-0.59); #Neutrophils 11.1 thou/uL (1.40-6.50); %Basophils 0.5 % (0.0-1.0); %Eosinophils 1.4 % (0.0-10.0); %Lymphocytes 15.3 % (21.0-51.0); %Monocytes 11.4 % (0.0-10.0); %Neutrophils 71.4 % (42.0-75.0); Hemoglobin 13.7 g/dL (14.0-18.0); Mean Corpuscular HGB CONC 33.7 g/dL (32.0-36.0); Mean Corpuscular Hemoglobin 34.1 pg (27.0-31.0); Mean Platelet Volume 9.2 fL (7.4-10.4); Platelet Count 264 thou/uL (130-400); RBC Distribution Width 13.5 % (11.5-14.5); Red Blood Cell (RBC) Count 4.01 mill/uL (4.70-6.10); White Blood Cell (WBC) Count 15.6 thou/uL (4.8-10.8)
[2021-06-15 22:30] LABS: INR-International Normal Ratio 1.1; PTT 33.5 sec (22.9-36.1); Prothrombin Time 13.8 sec (12.0-14.7)
[2021-06-15 22:56] LABS: ALT (SGPT) 26 U/L (8-55); AST (SGOT) 36 U/L (5-34); Albumin 4.1 g/dL (3.4-4.8); Alkaline Phosphatase 89 U/L (40-110); Anion Gap 15 mmol/L (10-20); BUN (Urea Nitrogen) 14 mg/dL (8.4-25.7); Bilirubin, Total 0.9 mg/dL (0.2-1.2); Calc. Creatinine Clearance 0 mL/min (70-130); Calcium 9.3 mg/dL (7.8-10.44); Carbon Dioxide 24 mmol/L (23-31); Chloride 105 mmol/L (98-107); Globulin 4.2 g/dL (2.4-3.5); Glucose 64 mg/dL (80-115); Magnesium 1.9 mg/dL (1.6-2.6); Phosphorus 3.2 mg/dL (2.3-4.7); Potassium 3.9 mmol/L (3.5-5.1); Protein, Total 8.3 g/dL (5.8-8.1); Sodium 140 mmol/L (136-145)
[2021-06-15] MEDS ORDERED: PHOS-NAK 1 PKT PACK PO SCH (23:15)
[2021-06-15] MEDS ORDERED: Ondansetron PF 4 MG/2 ML Vial IVP PRN (23:25)
[2021-06-15] MEDS ORDERED: hydrALAZINE 20 MG/ML VIAL SLOW IVP PRN (23:25)
[2021-06-15] MEDS ORDERED: Dextrose 5% in Water 1,000 ML IV PRN (23:25)
[2021-06-15] MEDS ORDERED: Morphine 4 MG/ML VIAL SLOW IVP PRN (23:25)
[2021-06-15] MEDS ORDERED: Dextrose 50% Abboject 50 ML SYRINGE SLOW IVP PRN (23:25)
[2021-06-15] MEDS ORDERED: Ondansetron PF 4 MG/2 ML Vial ONE (23:28)
[2021-06-15] MEDS ORDERED: Morphine 4 MG/ML VIAL ONE (23:28)
[2021-06-15] MEDS ORDERED: Sodium Chloride 0.9% 1,000 ML IV SCH (23:30)
[2021-06-15] MEDS ORDERED: traMADol HCl 50 MG TAB PO PRN ×2 (23:31)
[2021-06-16 02:18] VITALS: BMI 29.7
[2021-06-16] MEDS ORDERED: ALPRAZolam 1 MG TAB PO PRN (02:34)
[2021-06-16] MEDS: Ibuprofen 200 MG TAB PO SCH ×3 (05:20→19:55)
[2021-06-16 06:02] LABS: SARS-CoV-2 NAA Rapid Test Not Detected (NotDetected)
[2021-06-16 06:17] LABS: Hemoglobin 13.7 g/dL (14.0-18.0); Mean Corpuscular HGB CONC 33.7 g/dL (32.0-36.0); Mean Platelet Volume 8.8 fL (7.4-10.4); Platelet Count 260 thou/uL (130-400); RBC Distribution Width 13.3 % (11.5-14.5); Red Blood Cell (RBC) Count 4.03 mill/uL (4.70-6.10); White Blood Cell (WBC) Count 9.9 thou/uL (4.8-10.8)
[2021-06-16 06:28] LABS: Anion Gap 14 mmol/L (10-20); BUN (Urea Nitrogen) 16 mg/dL (8.4-25.7); Band 5 % (5-11); Calc. Creatinine Clearance 117 mL/min (70-130); Calcium 9.2 mg/dL (7.8-10.44); Carbon Dioxide 26 mmol/L (23-31); Chloride 104 mmol/L (98-107); Eosinophils 3 % (0-10); Glucose 77 mg/dL (80-115); Lymphocytes 22 % (21-51); MDiff Complete? YES; Magnesium 1.9 mg/dL (1.6-2.6); Monocytes 14 % (0-10); Neutrophil 56 % (42-75); Phosphorus 2.9 mg/dL (2.3-4.7); Potassium 3.9 mmol/L (3.5-5.1); Sodium 140 mmol/L (136-145)
[2021-06-16] MEDS ORDERED: FLU VACC QS2021-22(6MOS UP)/PF 60 MCG/0.5 ML SYRINGE IM ONE (09:00)
[2021-06-16] MEDS ORDERED: ceFAZolin 2 GM/Dextrose 50 ML 2 GM in Premix Bag 1 BAG IVPB SCH (09:30)
[2021-06-16] MEDS: Senokot S 8.6-50 MG TAB PO SCH ×2 (09:44→19:54)
[2021-06-16] MEDS: Polyethylene Glycol 3350 17 GM Packet PO SCH (09:44)
[2021-06-16] MEDS: Gabapentin 300 MG CAP PO SCH ×3 (09:44→19:54)
[2021-06-16] MEDS: Famotidine 20 MG TAB PO SCH ×2 (09:45→19:54)
[2021-06-16] MEDS ORDERED: traMADol HCl 50 MG TAB PO PRN (10:36)
[2021-06-16] MEDS: traMADol HCl 50 MG TAB PO SCH ×2 (12:38→17:09)
[2021-06-16] MEDS ORDERED: Sodium Chloride 0.9% 500 ML IV SCH (17:00)
[2021-06-16] MEDS ORDERED: Acetaminophen/Codeine 30-300mg Tablet PO PRN (17:14)
[2021-06-16] MEDS: Acetaminophen 325 MG TAB PO SCH (17:57)
[2021-06-16] MEDS: Cyclobenzaprine 10 MG TAB PO PRN (17:57)
[2021-06-16] MEDS: ALPRAZolam 1 MG TAB PO SCH ×2 (19:55→22:06)
[2021-06-16] MEDS ORDERED: Oxazepam 10 MG CAP PO SCH (22:00)
[2021-06-16] MEDS ORDERED: Melatonin 3 MG TAB PO SCH (22:30)
[2021-06-17] MEDS: Acetaminophen 325 MG TAB PO SCH ×5 (04:47→23:22)
[2021-06-17] MEDS: Acetaminophen/Codeine 30-300mg Tablet PO SCH ×5 (04:47→23:22)
[2021-06-17] MEDS: Ibuprofen 200 MG TAB PO SCH ×3 (05:11→20:30)
[2021-06-17] MEDS: Senokot S 8.6-50 MG TAB PO SCH ×2 (10:13→20:29)
[2021-06-17] MEDS: Folic Acid 1 MG TAB PO SCH (10:14)
[2021-06-17] MEDS: Famotidine 20 MG TAB PO SCH ×2 (10:14→20:31)
[2021-06-17] MEDS: Gabapentin 300 MG CAP PO SCH ×3 (10:14→20:29)
[2021-06-17] MEDS ORDERED: Sodium Chloride 0.9% 1,000 ML IV SCH (10:15)
[2021-06-17] MEDS: Multivitamin W/ Minerals 1 TAB PO SCH (10:15)
[2021-06-17] MEDS: Polyethylene Glycol 3350 17 GM Packet PO SCH ×2 (10:15)
[2021-06-17] MEDS: Thiamine 100 MG TAB PO SCH (10:16)
[2021-06-17] MEDS: ALPRAZolam 1 MG TAB PO SCH ×3 (10:20→20:31)
[2021-06-17] MEDS ORDERED: Fentanyl 100 MCG/2 ML VIAL ONE (13:22)
[2021-06-17] MEDS ORDERED: Ketamine 50 MG/ML (10ML VIAL) ONE (14:26)
[2021-06-17] MEDS ORDERED: ceFAZolin 2 GM/Dextrose 50 ML IVPB ONE (14:37)
[2021-06-17] MEDS ORDERED: Dexamethasone 20 MG/5 ML VIAL ONE (14:47)
[2021-06-17] MEDS ORDERED: PHENYLEPHRINE-NS 100 MCG/ML 10 ML SYRINGE ONE (14:47)
[2021-06-17] MEDS ORDERED: PROPOFOL 200 MG/20 ML VIAL ONE (14:47)
[2021-06-17] MEDS ORDERED: Ondansetron PF 4 MG/2 ML Vial ONE (14:47)
[2021-06-17] MEDS ORDERED: Glycopyrrolate 0.2 MG/ML 5 ML SYRINGE ONE (14:47)
[2021-06-17] MEDS ORDERED: Rocuronium Bromide 10 MG/ML (10ML VIAL) ONE (14:47)
[2021-06-17] MEDS ORDERED: ePHEDrine 50 MG/ML VIAL ONE ×2 (14:47)
[2021-06-17] MEDS ORDERED: Lidocaine 1% PF 5 ML VIAL ONE (14:47)
[2021-06-17] MEDS ORDERED: Succinylcholine 200 MG/10 ml SYRINGE FS ONE (14:47)
[2021-06-17] MEDS ORDERED: HYDROmorphone 2 MG/ML VIAL SLOW IVP PRN (16:54)
[2021-06-17] MEDS ORDERED: Ondansetron HCl/PF 4 MG/2 ML Vial IVP PRN (16:54)
[2021-06-17] MEDS: Melatonin 3 MG TAB PO SCH (20:29)
[2021-06-17] MEDS: ceFAZolin 2 GM/Dextrose 50 ML 2 GM in Premix Bag 1 BAG IVPB SCH (20:31)
[2021-06-18] MEDS: Ibuprofen 200 MG TAB PO SCH (06:07)
[2021-06-18] MEDS: Acetaminophen/Codeine 30-300mg Tablet PO SCH ×4 (06:07→23:32)
[2021-06-18] MEDS: Acetaminophen 325 MG TAB PO SCH ×4 (06:07→20:07)
[2021-06-18] MEDS: ceFAZolin 2 GM/Dextrose 50 ML 2 GM in Premix Bag 1 BAG IVPB SCH ×2 (06:08→14:21)
[2021-06-18 06:55] LABS: #Monocytes 1.2 thou/uL (0.11-0.59); #Neutrophils 10.9 thou/uL (1.40-6.50); %Basophils 0.1 % (0.0-1.0); %Eosinophils 0.1 % (0.0-10.0); %Monocytes 8.5 % (0.0-10.0); %Neutrophils 77.3 % (42.0-75.0); Hemoglobin 11.6 g/dL (14.0-18.0); Mean Corpuscular HGB CONC 33.2 g/dL (32.0-36.0); Mean Corpuscular Hemoglobin 34.4 pg (27.0-31.0); Mean Platelet Volume 8.7 fL (7.4-10.4); Platelet Count 232 thou/uL (130-400); RBC Distribution Width 13.5 % (11.5-14.5); Red Blood Cell (RBC) Count 3.36 mill/uL (4.70-6.10); White Blood Cell (WBC) Count 14.1 thou/uL (4.8-10.8)
[2021-06-18 07:19] LABS: Anion Gap 10 mmol/L (10-20); BUN (Urea Nitrogen) 13 mg/dL (8.4-25.7); Calc. Creatinine Clearance 116 mL/min (70-130); Calcium 8.5 mg/dL (7.8-10.44); Carbon Dioxide 28 mmol/L (23-31); Chloride 106 mmol/L (98-107); Glucose 139 mg/dL (80-115); Magnesium 2.1 mg/dL (1.6-2.6); Phosphorus 2.8 mg/dL (2.3-4.7); Potassium 4.4 mmol/L (3.5-5.1); Sodium 140 mmol/L (136-145)
[2021-06-18] MEDS ORDERED: Acetaminophen/Codeine 30-300mg Tablet PO PRN (07:43)
[2021-06-18] MEDS ORDERED: Ibuprofen 200 MG TAB PO PRN (08:18)
[2021-06-18] MEDS: Polyethylene Glycol 3350 17 GM Packet PO SCH (08:33)
[2021-06-18] MEDS: Senokot S 8.6-50 MG TAB PO SCH ×2 (08:34→20:06)
[2021-06-18] MEDS: Folic Acid 1 MG TAB PO SCH (08:34)
[2021-06-18] MEDS: Thiamine 100 MG TAB PO SCH (08:35)
[2021-06-18] MEDS: Multivitamin W/ Minerals 1 TAB PO SCH (08:35)
[2021-06-18] MEDS: ALPRAZolam 1 MG TAB PO PRN ×2 (08:36→20:07)
[2021-06-18] MEDS: Gabapentin 300 MG CAP PO SCH ×3 (08:36→20:06)
[2021-06-18] MEDS: Tamsulosin HCl 0.4 MG CAP PO SCH (08:37)
[2021-06-18] MEDS ORDERED: Aspirin 81 mg Enteric Coated Tablet PO SCH (09:00)
[2021-06-18] MEDS ORDERED: Morphine 4 MG/ML VIAL SLOW IVP SCH (09:06)
[2021-06-18 11:09] LABS: Bacteria/HPF None Seen HPF (None Seen); Bilirubin Negative (Negative); Blood, Urine Trace (Negative); Clarity Clear (Clear); Glucose, Urine (Dipstick) Normal (Negative); Ketone, Urine Negative (Negative); Leukocyte 75 Leu/uL (Negative); Nitrite Negative (Negative); Protein, Urine (Dipstick) 30 mg/dL (Neg-Trace); Specific Gravity, Urine 1.036 (1.002-1.036); Squamous Epithelial 0-3 HPF (0-3); Urobilinogen Normal mg/dL (Less than 2); pH, Urine 5.5 (5.0-9.0)
[2021-06-18 11:13] LABS: Urine Culture Reflex Yes Yes
[2021-06-18] MEDS: Melatonin 3 MG TAB PO SCH (20:06)
[2021-06-18] MEDS: Apixaban 5 MG TAB PO SCH (20:07)
[2021-06-18] MEDS ORDERED: Apixaban 2.5 MG TAB PO SCH (21:00)
[2021-06-19] MEDS: Acetaminophen 325 MG TAB PO SCH ×4 (03:41→21:17)
[2021-06-19] MEDS: Acetaminophen/Codeine 30-300mg Tablet PO SCH ×4 (05:39→23:33)
[2021-06-19] MEDS: Polyethylene Glycol 3350 17 GM Packet PO SCH (08:09)
[2021-06-19] MEDS: Tamsulosin HCl 0.4 MG CAP PO SCH (08:10)
[2021-06-19] MEDS: ALPRAZolam 1 MG TAB PO PRN ×2 (08:10→21:04)
[2021-06-19] MEDS: Apixaban 5 MG TAB PO SCH ×2 (08:10→21:05)
[2021-06-19] MEDS: Folic Acid 1 MG TAB PO SCH (08:10)
[2021-06-19] MEDS: Senokot S 8.6-50 MG TAB PO SCH ×2 (08:10→21:07)
[2021-06-19] MEDS: Cyclobenzaprine 10 MG TAB PO PRN (08:11)
[2021-06-19] MEDS: Multivitamin W/ Minerals 1 TAB PO SCH (08:11)
[2021-06-19] MEDS: Gabapentin 300 MG CAP PO SCH ×3 (08:11→21:06)
[2021-06-19] MEDS: Thiamine 100 MG TAB PO SCH (08:11)
[2021-06-19] MEDS ORDERED: Morphine 2 MG/ML VIAL SLOW IVP STA (09:22)
[2021-06-19] MEDS ORDERED: Morphine 4 MG/ML VIAL SLOW IVP SCH (09:45)
[2021-06-19] MEDS: Ibuprofen 200 MG TAB PO SCH ×2 (09:51→17:02)
[2021-06-19] MEDS: Melatonin 3 MG TAB PO SCH (21:05)
[2021-06-20] MEDS: Acetaminophen 325 MG TAB PO SCH ×4 (02:14→19:57)
[2021-06-20] MEDS: Ibuprofen 200 MG TAB PO SCH ×4 (02:15→23:21)
[2021-06-20] MEDS: Acetaminophen/Codeine 30-300mg Tablet PO SCH ×4 (06:09→23:21)
[2021-06-20] MEDS ORDERED: Losartan 25 MG TAB PO SCH (09:00)
[2021-06-20] MEDS ORDERED: Lisinopril 10 MG TAB PO SCH (09:00)
[2021-06-20] MEDS: Folic Acid 1 MG TAB PO SCH (09:48)
[2021-06-20] MEDS: Tamsulosin HCl 0.4 MG CAP PO SCH (09:49)
[2021-06-20] MEDS: Senokot S 8.6-50 MG TAB PO SCH ×2 (09:50→20:03)
[2021-06-20] MEDS: Gabapentin 300 MG CAP PO SCH ×3 (09:50→19:58)
[2021-06-20] MEDS: Multivitamin W/ Minerals 1 TAB PO SCH (09:51)
[2021-06-20] MEDS: Polyethylene Glycol 3350 17 GM Packet PO SCH (09:51)
[2021-06-20] MEDS: Thiamine 100 MG TAB PO SCH (09:51)
[2021-06-20] MEDS: Apixaban 5 MG TAB PO SCH ×2 (09:51→19:56)
[2021-06-20] MEDS: ALPRAZolam 1 MG TAB PO PRN ×2 (09:56→18:45)
[2021-06-20] MEDS ORDERED: Famotidine 20 MG TAB PO SCH (14:15)
[2021-06-20] MEDS: hydrALAZINE 20 MG/ML VIAL SLOW IVP PRN (19:52)
[2021-06-20] MEDS: Famotidine 20 MG TAB PO SCH (19:56)
[2021-06-20] MEDS: Melatonin 3 MG TAB PO SCH (19:56)
[2021-06-20] MEDS: Amlodipine 10 MG TAB PO SCH (20:47)
[2021-06-21] MEDS: ALPRAZolam 1 MG TAB PO PRN ×3 (01:18→20:44)
[2021-06-21] MEDS: Acetaminophen 325 MG TAB PO SCH ×4 (04:14→20:46)
[2021-06-21] MEDS: hydrALAZINE 20 MG/ML VIAL SLOW IVP PRN (04:23)
[2021-06-21] MEDS: Acetaminophen/Codeine 30-300mg Tablet PO SCH ×3 (05:20→18:02)
[2021-06-21] MEDS: Apixaban 5 MG TAB PO SCH ×2 (08:52→20:45)
[2021-06-21] MEDS: Famotidine 20 MG TAB PO SCH ×2 (08:52→20:44)
[2021-06-21] MEDS: Multivitamin W/ Minerals 1 TAB PO SCH (08:52)
[2021-06-21] MEDS: Thiamine 100 MG TAB PO SCH (08:52)
[2021-06-21] MEDS: Senokot S 8.6-50 MG TAB PO SCH ×2 (08:53→20:43)
[2021-06-21] MEDS: Polyethylene Glycol 3350 17 GM Packet PO SCH (08:53)
[2021-06-21] MEDS: Gabapentin 300 MG CAP PO SCH ×3 (08:53→20:44)
[2021-06-21] MEDS: Folic Acid 1 MG TAB PO SCH (08:54)
[2021-06-21] MEDS: Tamsulosin HCl 0.4 MG CAP PO SCH (08:54)
[2021-06-21] MEDS ORDERED: Losartan 25 MG TAB PO SCH (09:00)
[2021-06-21] MEDS: Ibuprofen 200 MG TAB PO SCH ×2 (11:48→18:01)
[2021-06-21] MEDS: Losartan 25 MG TAB PO SCH (11:51)
[2021-06-21] MEDS ORDERED: hydrALAZINE 20 MG/ML VIAL SLOW IVP PRN (18:06)
[2021-06-21] MEDS: Melatonin 3 MG TAB PO SCH (20:43)
[2021-06-21] MEDS: Amlodipine 10 MG TAB PO SCH (20:43)
[2021-06-22] MEDS: Acetaminophen/Codeine 30-300mg Tablet PO SCH ×4 (01:19→18:58)
[2021-06-22] MEDS: Ibuprofen 200 MG TAB PO SCH ×3 (01:20→17:43)
[2021-06-22] MEDS: Acetaminophen 325 MG TAB PO SCH ×4 (04:24→20:34)
[2021-06-22] MEDS: Senokot S 8.6-50 MG TAB PO SCH ×2 (08:31→20:37)
[2021-06-22] MEDS: Folic Acid 1 MG TAB PO SCH (08:32)
[2021-06-22] MEDS: Famotidine 20 MG TAB PO SCH ×2 (08:32→20:34)
[2021-06-22] MEDS: Thiamine 100 MG TAB PO SCH (08:36)
[2021-06-22] MEDS: Tamsulosin HCl 0.4 MG CAP PO SCH (08:37)
[2021-06-22] MEDS: Apixaban 5 MG TAB PO SCH ×2 (08:37→20:34)
[2021-06-22] MEDS: Gabapentin 300 MG CAP PO SCH ×3 (08:37→20:34)
[2021-06-22] MEDS: Losartan 25 MG TAB PO SCH (08:37)
[2021-06-22] MEDS: Multivitamin W/ Minerals 1 TAB PO SCH (08:38)
[2021-06-22] MEDS: Polyethylene Glycol 3350 17 GM Packet PO SCH (08:38)
[2021-06-22 12:33] LABS: SARS-CoV-2 PCR by NAA Not Detected (NotDetected)
[2021-06-22] MEDS: Melatonin 3 MG TAB PO SCH (20:33)
[2021-06-22] MEDS: ALPRAZolam 1 MG TAB PO PRN (20:34)
[2021-06-22] MEDS: Amlodipine 10 MG TAB PO SCH (20:36)
[2021-06-23] MEDS: Acetaminophen/Codeine 30-300mg Tablet PO SCH ×5 (00:14→23:09)
[2021-06-23] MEDS: Ibuprofen 200 MG TAB PO SCH ×3 (00:50→18:10)
[2021-06-23] MEDS: Acetaminophen 325 MG TAB PO SCH ×4 (03:15→20:32)
[2021-06-23] MEDS: Apixaban 5 MG TAB PO SCH ×2 (08:44→20:06)
[2021-06-23] MEDS: Famotidine 20 MG TAB PO SCH ×2 (08:44→20:07)
[2021-06-23] MEDS: Gabapentin 300 MG CAP PO SCH ×3 (08:45→20:08)
[2021-06-23] MEDS: Multivitamin W/ Minerals 1 TAB PO SCH (08:45)
[2021-06-23] MEDS: Folic Acid 1 MG TAB PO SCH (08:45)
[2021-06-23] MEDS: Thiamine 100 MG TAB PO SCH (08:45)
[2021-06-23] MEDS: Polyethylene Glycol 3350 17 GM Packet PO SCH (08:48)
[2021-06-23] MEDS: Tamsulosin HCl 0.4 MG CAP PO SCH (08:48)
[2021-06-23] MEDS: Senokot S 8.6-50 MG TAB PO SCH ×2 (08:49→20:07)
[2021-06-23] MEDS: Losartan 25 MG TAB PO SCH (08:51)
[2021-06-23] MEDS: Melatonin 3 MG TAB PO SCH (20:06)
[2021-06-23] MEDS: Amlodipine 10 MG TAB PO SCH (20:07)
[2021-06-23] MEDS: ALPRAZolam 1 MG TAB PO PRN (20:10)
[2021-06-24] MEDS: Ibuprofen 200 MG TAB PO SCH ×2 (00:39→09:20)
[2021-06-24] MEDS: Acetaminophen 325 MG TAB PO SCH ×2 (06:07→09:19)
[2021-06-24] MEDS: Acetaminophen/Codeine 30-300mg Tablet PO SCH ×2 (06:14→11:58)
[2021-06-24] MEDS: Losartan 25 MG TAB PO SCH (09:13)
[2021-06-24] MEDS: Folic Acid 1 MG TAB PO SCH (09:14)
[2021-06-24] MEDS: Apixaban 5 MG TAB PO SCH (09:14)
[2021-06-24] MEDS: Famotidine 20 MG TAB PO SCH (09:14)
[2021-06-24] MEDS: Senokot S 8.6-50 MG TAB PO SCH (09:14)
[2021-06-24] MEDS: Gabapentin 300 MG CAP PO SCH (09:14)
[2021-06-24] MEDS: Multivitamin W/ Minerals 1 TAB PO SCH (09:14)
[2021-06-24] MEDS: Tamsulosin HCl 0.4 MG CAP PO SCH (09:14)
[2021-06-24] MEDS: Thiamine 100 MG TAB PO SCH (09:14)
[2021-06-24] MEDS: Polyethylene Glycol 3350 17 GM Packet PO SCH (09:14)
[2021-06-24 12:13] VITALS: BP 134/76; TEMP 98
== END 2021-06-24 15:00 | disposition home health service (06) | DRG 494 ==
LOC: ERS 20:28 → SURG B 23:30
PROVIDERS: ADMIT Surgery; ATTEND Surgery
PROC: 0QSG06Z Reposition Right Tibia with Intramedullary Internal Fixation Device, Open Approach (ICD-10-PCS; principal; 2021-06-17)
PROC: 0QSJ04Z Reposition Right Fibula with Internal Fixation Device, Open Approach (ICD-10-PCS; 2021-06-17)
DX: S82.391A Other fracture of lower end of right tibia, initial encounter for closed fracture (principal); S82.61XA Displaced fracture of lateral malleolus of right fibula, initial encounter for closed fracture; K74.60 Unspecified cirrhosis of liver; E78.5 Hyperlipidemia, unspecified; I10 Essential (primary) hypertension; W18.30XA Fall on same level, unspecified, initial encounter; F17.210 Nicotine dependence, cigarettes, uncomplicated; F41.9 Anxiety disorder, unspecified; Z20.822 Contact with and (suspected) exposure to COVID-19; R33.9 Retention of urine, unspecified; Z86.718 Personal history of other venous thrombosis and embolism; Z87.820 Personal history of traumatic brain injury; Z90.49 Acquired absence of other specified parts of digestive tract; Z98.890 Other specified postprocedural states; Z90.81 Acquired absence of spleen; Z79.01 Long term (current) use of anticoagulants
CPT/HCPCS: 27752; 36415; 70450; 71045; 72125; 76000; 80048; 80053; 80307; 81001; 83735; 84100; 85025; 85610; 85730; 86850; 86900; 86901; 87086; 94640; 96374; 96375; C1713; C1874; G0390; J0360; J0690; J1100; J2270; J2405; J2704; J3010; J3490; J7030; J7050; J7620; U0002; U0003; U0005

== ENCOUNTER 2023-12-06 16:48 | Inpatient (IN) | payer MEDICARE ==
[~2023-12-06 16:48] MED LIST: Iopamidol-370 76% 500 ML MDV (1 ML CHARGE) ONE
[2023-12-06 17:24] LABS: #Basophils 0.06 10x3/uL (0.0-0.2); %Basophils 0.6 % (0.0-1.0); %Eosinophils 1.7 % (0.0-10.0); %Lymphocytes 33.2 % (21.0-51.0); %Monocytes 11.9 % (0.0-10.0); %Neutrophils 52.2 % (42.0-75.0); Hematocrit 37.8 % (42.0-52.0); Hemoglobin 13.2 g/dL (14.0-18.0); Mean Corpuscular HGB CONC 34.9 g/dL (32.0-36.0); Mean Corpuscular Hemoglobin 34.6 pg (27.0-31.0); Mean Platelet Volume 10.8 fL (7.4-10.4); Platelet Count 294 10x3/uL (130-400); RBC Distribution Width 15.4 % (11.5-14.5); Red Blood Cell (RBC) Count 3.82 mill/uL (4.70-6.10)
[2023-12-06 17:35] LABS: INR-International Normal Ratio 1.1; Magnesium 1.9 mg/dL (1.6-2.6); Prothrombin Time 14.4 sec (12.0-14.7)
[2023-12-06 17:36] LABS: Acetaminophen Less than 10 mcg/mL (10.0-30.0); Alcohol Less than 10.0 mg/dL (Less than 10); PTT 35.6 sec (22.9-36.1); Salicylate Less than 8.0 mg/dL (15.0-30.0)
[2023-12-06 17:42] LABS: Troponin I Less than 0.010 ng/mL (< 0.028)
[2023-12-06 17:44] LABS: ALT (SGPT) 24 U/L (8-55); AST (SGOT) 34 U/L (5-34); Albumin 4.3 g/dL (3.4-4.8); Alkaline Phosphatase 64 U/L (40-110); Anion Gap 12 mmol/L (10-20); BUN (Urea Nitrogen) 15 mg/dL (8.4-25.7); Bilirubin, Total 0.4 mg/dL (0.2-1.2); CK (CPK) 687 U/L (30-200); Calc. Creatinine Clearance 0 mL/min (70-130); Calcium 9.6 mg/dL (7.8-10.44); Carbon Dioxide 23 mmol/L (23-31); Chloride 110 mmol/L (98-107); Estimated GFR 53; Globulin 3.8 g/dL (2.4-3.5); Glucose 98 mg/dL (80-115); Potassium 4.5 mmol/L (3.5-5.1); Protein, Total 8.1 g/dL (5.8-8.1); Sodium 140 mmol/L (136-145)
[2023-12-06 19:33] LABS: Acetaminophen Less than 10 mcg/mL (10.0-30.0); Alcohol Less than 10.0 mg/dL (Less than 10); Salicylate Less than 8.0 mg/dL (15.0-30.0)
[2023-12-06] MEDS ORDERED: Aspirin Chewable 81 MG TAB ONE (19:51)
[2023-12-06] MEDS ORDERED: Labetalol HCl 100 MG/20 ML VIAL SLOW IVP PRN (20:01)
[2023-12-06] MEDS ORDERED: hydrALAZINE 20 MG/ML VIAL SLOW IVP PRN (20:01)
[2023-12-06] MEDS ORDERED: Ondansetron PF 4 MG/2 ML Vial IVP PRN (20:01)
[2023-12-06 21:36] VITALS: BMI 33.1
[2023-12-06] MEDS: ALPRAZolam 1 MG TAB PO SCH (23:03)
[2023-12-06] MEDS: Enoxaparin 120 MG/0.8 ML SYRINGE SC SCH (23:03)
[2023-12-06] MEDS: Sodium Chloride 0.9% 1,000 ML IV SCH (23:03)
[2023-12-06] MEDS: Enoxaparin 100 MG (1 mL) SYRINGE SC SCH (23:06)
[2023-12-07] MEDS ORDERED: Sterile Water 10 ML VIAL FS PRN (01:30)
[2023-12-07] MEDS: Ziprasidone 20 MG VIAL IM SCH (01:40)
[2023-12-07] MEDS: Sterile Water 10 ML ONE (05:24)
[2023-12-07] MEDS: Enoxaparin 120 MG/0.8 ML SYRINGE SC SCH (08:50)
[2023-12-07] MEDS: ALPRAZolam 1 MG TAB PO SCH (09:34)
[2023-12-07 10:12] LABS: #Basophils 0.05 10x3/uL (0.0-0.2); %Basophils 0.5 % (0.0-1.0); %Eosinophils 1.2 % (0.0-10.0); %Lymphocytes 35.9 % (21.0-51.0); %Monocytes 11.1 % (0.0-10.0); Hematocrit 38.8 % (42.0-52.0); Hemoglobin 13.7 g/dL (14.0-18.0); Mean Corpuscular HGB CONC 35.3 g/dL (32.0-36.0); Mean Corpuscular Hemoglobin 34.8 pg (27.0-31.0); Mean Corpuscular Volume 98.5 fL (78.0-98.0); Mean Platelet Volume 11.1 fL (7.4-10.4); Platelet Count 290 10x3/uL (130-400); RBC Distribution Width 15.5 % (11.5-14.5); Red Blood Cell (RBC) Count 3.94 mill/uL (4.70-6.10)
[2023-12-07] MEDS: Acetaminophen 325 MG TAB PO PRN (13:31)
[2023-12-07 13:53] LABS: Anion Gap 14 mmol/L (10-20); BUN (Urea Nitrogen) 25 mg/dL (8.4-25.7); CK (CPK) 828 U/L (30-200); Calc. Creatinine Clearance 58 mL/min (70-130); Calcium 9.5 mg/dL (7.8-10.44); Carbon Dioxide 21 mmol/L (23-31); Cardiac Risk 3.7 (Less than 4.5); Chloride 108 mmol/L (98-107); Cholesterol 125 mg/dl (< 200 Desired); Estimated GFR 35; Glucose 82 mg/dL (80-115); HDL Cholesterol 34 mg/dL (>60 Neg Risk); LDL Cholesterol, Calculated 75 mg/dL; Potassium 4.5 mmol/L (3.5-5.1); Sodium 138 mmol/L (136-145); Triglycerides 82 mg/dL (Less than 150)
[2023-12-07 14:18] LABS: Amphetamine Not Detected (NotDetected); Barbiturates Screen Not Detected (NotDetected); Benzodiazepine Screen Detected (NotDetected); Cocaine Metabolite Screen Not Detected (NotDetected); Methadone Not Detected (NotDetected); Methamphetamine Not Detected (NotDetected); Opiate Screen Not Detected (NotDetected); Oxycodone Screen Not Detected (NotDetected); Phencyclidine (PCP) Not Detected (NotDetected); THC/Cannabinoid Screen Not Detected (NotDetected); Tricyclic Screen Detected (NotDetected)
[2023-12-07 14:21] LABS: Bacteria/HPF None Seen HPF (None Seen); Bilirubin Negative (Negative); Blood, Urine Negative (Negative); CAUTI Indications for Culture Alt mental st,lethar; Clarity Clear (Clear); Glucose, Urine (Dipstick) Normal (Negative); Ketone, Urine Negative (Negative); Leukocyte Negative Leu/uL (Negative); Nitrite Negative (Negative); Protein, Urine (Dipstick) 20 mg/dL (Neg-Trace); RBC/HPF 0-3 HPF (0-3); Specific Gravity, Urine 1.038 (1.002-1.036); Squamous Epithelial 0-3 HPF (0-3); Urobilinogen Normal mg/dL (Less than 2); WBC/HPF 0-3 HPF (0-3); pH, Urine 5.5 (5.0-9.0)
[2023-12-07 14:32] LABS: Urine Culture Reflex No No
[2023-12-07 15:09] LABS: Hemoglobin A1c 5.4 % (4.0-6.0)
[2023-12-07] MEDS: Apixaban 5 MG TAB PO SCH (20:59)
[2023-12-07] MEDS: Losartan 25 MG TAB PO SCH (21:19)
[2023-12-07] MEDS: Rosuvastatin 20 MG TAB PO SCH (21:31)
[2023-12-07] MEDS: Tamsulosin HCl 0.4 MG CAP PO SCH (21:32)
[2023-12-08 06:23] LABS: #Basophils 0.06 10x3/uL (0.0-0.2); %Basophils 0.7 % (0.0-1.0); %Eosinophils 2.9 % (0.0-10.0); %Lymphocytes 45.9 % (21.0-51.0); %Monocytes 12.2 % (0.0-10.0); %Neutrophils 38.2 % (42.0-75.0); Hematocrit 38.4 % (42.0-52.0); Hemoglobin 13.1 g/dL (14.0-18.0); Mean Corpuscular HGB CONC 34.1 g/dL (32.0-36.0); Mean Corpuscular Hemoglobin 34.1 pg (27.0-31.0); Mean Platelet Volume 10.9 fL (7.4-10.4); Platelet Count 268 10x3/uL (130-400); RBC Distribution Width 15.6 % (11.5-14.5); Red Blood Cell (RBC) Count 3.84 mill/uL (4.70-6.10)
[2023-12-08 06:43] LABS: Anion Gap 11 mmol/L (10-20); BUN (Urea Nitrogen) 34 mg/dL (8.4-25.7); Calc. Creatinine Clearance 74 mL/min (70-130); Calcium 9.6 mg/dL (7.8-10.44); Carbon Dioxide 22 mmol/L (23-31); Chloride 109 mmol/L (98-107); Estimated GFR 47; Glucose 110 mg/dL (80-115); Potassium 4.6 mmol/L (3.5-5.1); Sodium 137 mmol/L (136-145)
[2023-12-08] MEDS: Multivitamin W/ Minerals 1 TAB PO SCH (07:53)
[2023-12-08 11:05] LABS: Syphilis Antibody Nonreactive (Nonreactive); Syphilis Antibody Index 0.09 S/CO (<1.00 Non-Reactive)
[2023-12-08 20:27] VITALS: BP 122/66; TEMP 98.2
== END 2023-12-09 00:05 | DRG 71 ==
LOC: ERS 16:48 → 2SW 19:17 → OBSVTOIN 12-07 08:54 → T4-B 12-07 21:18
PROVIDERS: ADMIT Internal Medicine; ATTEND Internal Medicine
DX: G93.41 Metabolic encephalopathy (principal); M62.82 Rhabdomyolysis; N17.9 Acute kidney failure, unspecified; F19.10 Other psychoactive substance abuse, uncomplicated; I10 Essential (primary) hypertension; F17.210 Nicotine dependence, cigarettes, uncomplicated; K74.60 Unspecified cirrhosis of liver; F39 Unspecified mood [affective] disorder; F29 Unspecified psychosis not due to a substance or known physiological condition; D63.8 Anemia in other chronic diseases classified elsewhere; B19.20 Unspecified viral hepatitis C without hepatic coma; Z88.5 Allergy status to narcotic agent; Z79.899 Other long term (current) drug therapy; Z79.01 Long term (current) use of anticoagulants; Z90.49 Acquired absence of other specified parts of digestive tract; Z98.890 Other specified postprocedural states
CPT/HCPCS: 36415; 36416; 70450; 70496; 70498; 70553; 71045; 76377; 80048; 80053; 80061; 80306; 80307; 81001; 82140; 82550; 82607; 83036; 83735; 83880; 84443; 84484; 85025; 85610; 85730; 86780; 93005; 93306; 96372; G0378; J1650; J3486; J7030; Q9967